=== PATIENT | female | born 1990 | race Hispanic/Latino ===

== ENCOUNTER 2020-10-30 15:21 | Inpatient (IN) | payer OTHER, SELFPAY ==
[~2020-10-30 15:21] MED LIST: Iopamidol-370 76% 500 ML 1 ML ONE
[2020-10-30 16:40] LABS: Hemoglobin 9.4 g/dL (12.0-16.0); Mean Corpuscular HGB CONC 29.5 g/dL (32.0-36.0); Mean Platelet Volume 5.6 fL (7.4-10.4); Platelet Count 557 thou/uL (130-400); RBC Distribution Width 20.4 % (11.5-14.5); Red Blood Cell (RBC) Count 5.25 mill/uL (4.20-5.40); White Blood Cell (WBC) Count 23.8 thou/uL (4.8-10.8)
[2020-10-30 16:49] LABS: BHCG - Serum Negative (NEGATIVE); Pregs Control Background? CLEAR/WHITE (CLR/WHITE); Pregs Control Bar Appear? YES (CONTROL BAR)
[2020-10-30 17:00] LABS: Anisocytosis SLIGHT = 6-15 cells (100X) (0-5/hpf); Band 3 % (5-11); Hypochromia SLIGHT = 6-15 cells (100X) (0-5/hpf); Lymphocytes 3 % (21-51); MDiff Complete? YES; Microcytosis SLIGHT = 6-15 cells (100X) (0-5/hpf); Monocytes 5 % (0-10); Neutrophil 89 % (42-75); Platelet Morphology Comment Appears Increased; Polychromasia SLIGHT = 2-3 cells (100X) (0-2/hpf); Reflex for Review?? YES; Target Cells SLIGHT = 2-5 cells (100X) (0-1/hpf)
[2020-10-30 17:02] LABS: ALT (SGPT) 10 U/L (8-55); AST (SGOT) 10 U/L (5-34); Albumin 3.9 g/dL (3.5-5.0); Alkaline Phosphatase 92 U/L (40-110); Anion Gap 16 mmol/L (10-20); BUN (Urea Nitrogen) 8 mg/dL (7.0-18.7); Bilirubin, Total 0.4 mg/dL (0.2-1.2); Calc. Creatinine Clearance 0 mL/min (70-130); Calcium 9.3 mg/dL (7.8-10.44); Carbon Dioxide 22 mmol/L (22-29); Chloride 97 mmol/L (98-107); Globulin 4.7 g/dL (2.4-3.5); Glucose 297 mg/dL (70-105); Potassium 4.3 mmol/L (3.5-5.1); Protein, Total 8.6 g/dL (6.0-8.3); Sodium 131 mmol/L (136-145)
--- NOTE | 2020-10-30 19:00 | CT ---
CTA Angio Chest W WO Con 10/30/2020 6:35 PM Indication: History of left-sided chest pain Technique: Multiple CTA images were obtained of the thorax with IV contrast. 3-D rendering: MIP ned nstructed images were created and reviewed. Comparison: No relevant prior studies available. Findings: Pulmonary arteries: There is lack of opacification of the left lower lobar pulmonary artery and the segmental branches of the left lower lobe suspicious for multifocal left lower lobe lobar and segmental pulmonary emboli. There are some areas of partial opacification involving the apical marinator ior segment of the left upper lobe suspicious for partially occlusive PE within the left upper lobe. No additional focal PE is grossly evident within the central pulmonary arteries of the right francoise ng. The degree of contrast opacification limits evaluation of the segmental branches of the right lung. Heart and Aorta: There is no evidence to suggest right heart strain. The great vessels of the chest appear within normal limits Mediastinum:Normal appearing. No enlarged lymph nodes. Lungs:There are areas of patchy airspace consolidation in the left lower lobe some which could be rel ated pulmonary infarct or pneumonia. There are calcified granuloma in the left lower lobe, right lower lobe and right upper lobe.. Pleural space: There is a moderate left-sided pleural effusion Upper Abdomen: There is prominent hepatomegaly with fatty infiltration with an area of focal fatty s paring in the left hepatic lobe. Osseous Structures: No acute fracture or subluxation demonstrated. There is scattered degenerative a nd osteoarthritic change present. Soft tissues:No abnormality. Other findings:None. Impression: 1. Lack of opacification of the left lower lobar pulmonary artery suspicious for occlusive thrombus. There are partially occlusive filling defects suspected within the segmental branches of the left lower lobe suspicious for multifocal segmental pulmonary emboli of the left lower lobe. There is airs pace disease of the left lower lobe which can be related to pneumonia or pulmonary infarct. There is suspected reactive moderate left-sided pleural effusion. Findings called to Dr. Huff at 6:45 PM on October 30, 2020. 2. Hepatomegaly with prominent fatty infiltration. 3. Findings of prior granulomatous disease
[2020-10-30] MEDS ORDERED: Sodium Chloride 0.9% 100 ML ONE (19:12)
[2020-10-30] MEDS ORDERED: Azithromycin 500 MG VIAL ONE (19:12)
[2020-10-30] MEDS ORDERED: Enoxaparin Sodium 80 MG/0.8 ML SYRINGE ONE (19:12)
[2020-10-30] MEDS ORDERED: cefTRIAXone\\ROCEPHIN 2 GM VIAL ONE (19:12)
[2020-10-30] MEDS ORDERED: Promethazine HCl 12.5 MG in Sodium Chloride 0.9% 50 ML IVPB PRN (20:44)
[2020-10-30] MEDS ORDERED: Ondansetron PF 4 MG/2 ML Vial IVP PRN (20:44)
[2020-10-30] MEDS ORDERED: Guaifenesin DM 100-10/5 ML UDCUP PO PRN (20:44)
[2020-10-30] MEDS ORDERED: hydrALAZINE 20 MG/ML VIAL SLOW IVP PRN (20:44)
[2020-10-30] MEDS ORDERED: Labetalol HCl 100 MG/20 ML VIAL SLOW IVP PRN (20:44)
[2020-10-30] MEDS ORDERED: cloNIDine 0.1 MG TAB PO PRN (20:44)
[2020-10-30] MEDS ORDERED: Electrolyte Replacement Protocol 1 EACH FS SCH (20:45)
[2020-10-30] MEDS ORDERED: Dextrose 50% Abboject 50 ML SYRINGE SLOW IVP PRN (20:54)
[2020-10-30] MEDS ORDERED: Dextrose 5% in Water 1,000 ML IV PRN (20:54)
--- NOTE | 2020-10-30 20:59 | PDOC.HHP ---
Hospitalist HPI Shortness of breath, chest pain History of Present Illness: Patient is a 30 year old female with PMH diabetes who presents to ED from [facility] for chest pain. Pain is L sided, associated with shortness of breath, present for a few days. Worsened this AM, denies fevers/chills. [facility]. She had CXR at [facility], was found to have pleural effusion, EKG read from there nonacute. Patient sent here, here CTA revealed PE as well as likely infectious process. Blood sugar in 300s, she does not take anything for DM at home. WBC 23.8, hgb 9.4, plt 557, BP 170s systolic. Patient given lovenox, admitted for further workup and care. She uses CPAP, does not have insurance and worried about costs. Allergies/Adverse Reactions: Allergy/AdvReac Type Severity Reaction Status Date / Time shellfish derived Allergy Unverified 10/30/20 21:06 Comments: none Past History: PMH: DM PSH: cyst surgery Social history: denies alcohol/tobacco/drug use FH: no relevant Hospitalist HPI ROS Constitutional: denies: fever, chills, sweats, weakness, malaise, other Eyes: denies: pain, vision change, conjunctivae inflammation, eyelid inflammation, redness, other ENT: denies: ear pain, ear discharge, nose pain, nose discharge, nose c ongestion, mouth pain, mouth swelling, throat pain, throat swelling, other Respiratory: reports: cough, shortness of breath, pleuritic pain. denies: dry, hemoptysis, SOB with excertion, sputum, wheezing, other Cardiovascular: reports: chest pain. denies: palpitations, orthopnea, paroxysmal noc. dyspnea, edema, light headedness, other Gastrointestinal: denies: nausea, vomiting, abdominal pain, diarrhea, constipation, melena, hematochezia, other Genitourinary: denies: dysuria, frequency, incontinence, hematuria, retention, other Musculoskeletal: denies: neck pain, shoulder pain, arm pain, back pain, hand pain, leg pain, foot pain, other Skin: denies: rash, lesions, rick, bruising, other Neurological: denies: weakness, numbness, incoordination, change in speech, confusion, seizures, other All other systems reviewed; all pertinent +/- noted in HPI/Subj Hospitalist Exam Vitals: VITAL SIGNS Oct 30, 2020 19:25 AUDREY Alaniz, Heidi BP: 171/82 Pulse: 108 Resp: 20 Pain: 4 O2 sat: 98 on (Room Air) Time: 10/30/2020 19:25. General Appearance: NAD, awake alert Eye: PERRL, anicteric sclera ENT: normocephalic atraumatic, no oropharyngeal lesions, moist mucosa Neck: supple, symmetric, no JVD, no thyromegaly, no lymphadenopathy, no carotid bruit Heart: RRR, no murmur, no gallops, no rubs, normal peripheral pulses Respiratory: CTAB, no wheezes, no rales, no ronchi, normal chest expansion, no tachypnea, normal percussion Gastrointestinal: soft, non-tender, non-distended, normal bowel sounds, no pal pable masses, no hepatomegaly, no splenomegaly, no bruit Extremities: no cyanosis, no clubbing, no edema Skin: normal turgor, no lesions, no rashes Neurological: cranial nerve grossly intact, normal sensation to touch, no wea kness, no focal deficits, no new deficit Musculoskeletal: normal tone, normal strength, no muscle wasting Psychiatric: normal affect, normal behavior, A&O x 3 Hospitalist Results Result Diagrams: 10/30/20 16:28 10/30/20 16:28 Lab results: Laboratory Last Values WBC 23.8 thou/uL (4.8-10.8) H 10/30/20 16: RBC 5.25 mill/uL (4.20-5.40) 10/30/20 16: Hgb 9.4 g/dL (12.0-16.0) L 10/30/20 16: Hct 32.0 % (36.0-47.0) L 10/30/20 16: MCV 61.0 fL (78.0-98.0) L 10/30/20 16: MCH 18.0 pg (27.0-31.0) L 10/30/20 16: MCHC 29.5 g/dL (32.0-36.0) L 10/30/20 16: RDW 20.4 % (11.5-14.5) H 10/30/20 16:28 Plt Count 557 thou/uL (130-400) H 10/30/20 16:28 MPV 5.6 fL (7.4-10.4) L 10/30/20 16:28 Neutrophils % (Manual) 89 % (42-75) H 10/30/20 16:28 Band Neuts % (Manual) 3 % (5-11) L 10/30/20 16:28 Lymphocytes % (Manual) 3 % (21-51) L 10/30/20 16:28 Monocytes % (Manual) 5 % (0-10) 10/30/20 16:28 Lymphocytes # Not Reportable 10/30/20 16:28 Hypochromia SLIGHT = 6-15 cells (100X) (0-5/hpf) 10/30/20 16:28 Plt Morphology Comment Appears Increased H 10/30/20 16:28 Polychromasia SLIGHT = 2-3 cells (100X) (0-2/hpf) 10/30/20 16:28 Anisocytosis SLIGHT = 6-15 cells (100X) (0-5/hpf) 10/30/20 16:28 Microcytosis SLIGHT = 6-15 cells (100X) (0-5/hpf) 10/30/20 16:28 Target Cells SLIGHT = 2-5 cells (100X) (0-1/hpf) 10/30/20 16:28 Sodium 131 mmol/L (136-145) L 10/30/20 16:28 Potassium 4.3 mmol/L (3.5-5.1) 10/30/20 16:28 Chloride 97 mmol/L (98-107) L 10/30/20 16:28 Carbon Dioxide 22 mmol/L (22-29) 10/30/20 16:28 Anion Gap 16 mmol/L (10-20) 10/30/20 16:28 BUN 8 mg/dL (7.0-18.7) 10/30/20 16:28 Creatinine 0.69 mg/dL (0.6-1.1) 10/30/20 16:28 Estimated GFR (MDRD) Greater than 90 10/30/20 16:28 Glucose 297 mg/dL (70-105) H 10/30/20 16:28 Calcium 9.3 mg/dL (7.8-10.44) 10/30/20 16:28 Total Bilirubin 0.4 mg/dL (0.2-1.2) 10/30/20 16:28 AST 10 U/L (5-34) 10/30/20 16:28 ALT 10 U/L (8-55) 10/30/20 16:28 Alkaline Phosphatase 92 U/L (40-110) 10/30/20 16:28 Serum Total Protein 8.6 g/dL (6.0-8.3) H 10/30/20 16:28 Albumin 3.9 g/dL (3.5-5.0) 10/30/20 16:28 Globulin 4.7 g/dL (2.4-3.5) H 10/30/20 16:28 Albumin/Globulin Ratio 0.8 g/dL (1.2-2.2) L 10/30/20 16:28 Serum , Qual Negative (NEGATIVE) 10/30/20 16:28 Additional comment: imaging results, CT chest report, ed documents, labs reviewed. vitals reviewed. Hospitalist H&P A/P Plan: Patient is a 30 year old female with PMH diabetes who presents to ED from [facility] for chest pain # LLL occlusive PE - admit to telemetry - start lovenox, pharmacy consult to dose - monitor for bleeding # LLL airspace disease # L sided pleural effusion # community acquired pneumonia patient w/ CT findings of occlusive PE, airspace disease, L sided PE associated with L sided chest pain - start antibiotics, azithromycin/ceftriaxone - monitor clinically # DM - does not manage at home, uncontrolled - start moderate SSI - consider metformin or glipizide at dc - A1C # leukocytosis # sepsis tachycardia, WBC 23.8, suspect related to pneumonia, abx as above # anemia # thrombocythemia suspect reactive, trend CBC # fatty liver disease - outpatient weight loss recommended # hyponatremia - mild, treat DM and trend BMP DVT/GI ppx
[2020-10-30] MEDS ORDERED: Famotidine 20 MG TAB PO SCH (21:00)
[2020-10-30] MEDS ORDERED: Ondansetron PF 4 MG/2 ML Vial ONE (21:45)
[2020-10-30] MEDS ORDERED: Famotidine 20 MG TAB ONE (21:53)
[2020-10-31] MEDS ORDERED: HYDROcodone/Acetaminophen 5/325 mg Tablet ONE (00:59)
[2020-10-31] MEDS: HYDROcodone/Acetaminophen 5/325 mg Tablet PO PRN ×2 (01:01→17:54)
[2020-10-31 04:50] VITALS: BMI 52.3
[2020-10-31 05:40] LABS: Anion Gap 13 mmol/L (10-20); BUN (Urea Nitrogen) 7 mg/dL (7.0-18.7); Calc. Creatinine Clearance 321 mL/min (70-130); Calcium 9.2 mg/dL (7.8-10.44); Carbon Dioxide 25 mmol/L (22-29); Chloride 98 mmol/L (98-107); Glucose 247 mg/dL (70-105); Potassium 3.8 mmol/L (3.5-5.1); Sodium 132 mmol/L (136-145)
[2020-10-31 05:56] LABS: #Eosinphils 0.1 thou/uL (0.0-0.7); #Monocytes 1.6 thou/uL (0.11-0.59); #Neutrophils 13.8 thou/uL (1.40-6.50); %Basophils 0.2 % (0.0-1.0); %Eosinophils 0.4 % (0.0-10.0); %Lymphocytes 16.4 % (21.0-51.0); %Monocytes 8.6 % (0.0-10.0); %Neutrophils 74.4 % (42.0-75.0); Hemoglobin 8.9 g/dL (12.0-16.0); Mean Corpuscular Hemoglobin 17.9 pg (27.0-31.0); Mean Corpuscular Volume 61.8 fL (78.0-98.0); Platelet Count 476 thou/uL (130-400); Red Blood Cell (RBC) Count 4.94 mill/uL (4.20-5.40); White Blood Cell (WBC) Count 18.6 thou/uL (4.8-10.8)
[2020-10-31] MEDS ORDERED: Acetaminophen 325 MG TAB PO PRN (06:13)
[2020-10-31] MEDS ORDERED: Magnesium 2 GM/50 ML 2 GM in Premix Bag 1 BAG IVPB SCH (06:30)
[2020-10-31] MEDS ORDERED: Calcium Carbonate 500 MG ChewTAB PO PRN (07:41)
[2020-10-31] MEDS ORDERED: Loperamide HCl 2 MG CAP PO PRN (07:41)
[2020-10-31] MEDS ORDERED: Sodium Chloride 0.65% Nasal 44 ML BOT EA NARE PRN (07:41)
[2020-10-31] MEDS ORDERED: Benzonatate 100 MG CAP PO PRN (07:41)
[2020-10-31] MEDS ORDERED: Zolpidem Tartrate 5 MG TAB PO PRN (07:41)
[2020-10-31] MEDS ORDERED: GUAIFENESIN SF SOLN 200 MG/10 ML UDCUP PO PRN (07:41)
[2020-10-31] MEDS ORDERED: Loratadine 10 MG TAB PO PRN (07:41)
[2020-10-31] MEDS ORDERED: Ondansetron ODT 4 MG TAB SL PRN (07:41)
[2020-10-31] MEDS ORDERED: Bisacodyl 5 MG TAB PO PRN (07:41)
[2020-10-31] MEDS ORDERED: Cepastat Lozenges 1 LOZ PO PRN (07:41)
[2020-10-31] MEDS ORDERED: Senokot S 8.6-50 MG TAB PO PRN (07:41)
[2020-10-31 09:01] LABS: INR-International Normal Ratio 1.1; Prothrombin Time 14.7 sec (12.0-14.7)
[2020-10-31 09:03] LABS: D-Dimer Test 1.88 *mcg/mL (0.27-0.43)
[2020-10-31] MEDS: Ferrous Sulfate 325 MG TAB PO SCH ×2 (09:15→17:32)
[2020-10-31] MEDS: Enoxaparin Sodium 80 MG/0.8 ML SYRINGE SC SCH ×2 (09:16→20:13)
[2020-10-31] MEDS: Polyethylene Glycol 3350 17 GM Packet PO SCH (09:17)
--- NOTE | 2020-10-31 10:56 | ULT ---
EXAM: Bilateral lower extremity venous ultrasound HISTORY: Patient has pulmonary emboli COMPARISON: None TECHNIQUE: Multiplanar grayscale and color Doppler images were obtained in a bilateral lower extremit y venous ultrasound. Spectral analysis of the Doppler waveforms were performed. FINDINGS: The bilateral common femoral vein, profunda femoral veins, superficial femoral veins, and p opliteal veins are normal in appearance without visible thrombus. These vessels demonstrate normal compression, flow, and augmentation. The bilateral posterior tibial veins, profunda femoral veins and greater saphenous veins are patent w ithout evidence of DVT. IMPRESSION: No evidence of DVT in the left or right lower extremity.
--- NOTE | 2020-10-31 10:58 | PDOC.HOSPP ---
- Subjective Encounter Date: 10/31/20 Encounter Time: 07:00 Subjective: Patient seen and examined bedside today, no overnight event, no new complaint, patient is on room air, no chest pain, - Objective Vital Signs & Weight: Vital Signs (12 hours) Temp Pulse Resp BP Pulse Ox 10/31/20 09:07 99.4 F 115 H 20 141/67 H 95 10/31/20 03:45 98.8 F 110 H 16 140/65 96 10/31/20 00:52 98.8 F 113 H 18 152/87 H 97 Weight Weight 354 lb 6.4 oz Result Diagrams: 10/31/20 05:11 10/31/20 05:11 Radiology Reviewed by me: Yes EKG Reviewed by me: Yes Hospitalist ROS - Review of Systems Eyes: denies: pain, vision change, conjunctivae inflammation, eyelid inflammation, redness, other ENT: denies: ear pain, ear discharge, nose pain, nose discharge, nose congestion, mouth pain, mouth swelling, throat pain, throat swelling, other Respiratory: denies: cough, dry, shortness of breath, hemoptysis, SOB with excertion, pleuritic pain, sputum, wheezing, other Cardiovascular: denies: chest pain, palpitations, orthopnea, paroxysmal noc. dyspnea, edema, light headedness, other Gastrointestinal: denies: nausea, vomiting, abdominal pain, diarrhea, constipation, melena, hematochezia, other Genitourinary: denies: dysuria, frequency, incontinence, hematuria, retention, other Musculoskeletal: denies: neck pain, shoulder pain, arm pain, back pain, hand pain, leg pain, foot pain, other - Medication Medications: Active Medications Generic Name Dose Route Start Last Admin Trade Name Freq PRN Reason Stop Dose Admin Hydrocodone Bitart/Acetaminophen 1 tab 10/30/20 20:44 10/31/20 01:01 Hydrocodone/Acetaminophen 5/325 Mg Tablet PO 1 tab Q4H PRN Administration Moderate Pain (4-6) Enoxaparin Sodium 160 mg 10/31/20 09:00 10/31/20 09:16 Enoxaparin Sodium 80 Mg/0.8 Ml Syringe SC 160 mg 0900,2100 JENNI Administration Ferrous Sulfate 325 mg 10/31/20 08:00 10/31/20 09:15 Ferrous Sulfate 325 Mg Tab PO 325 mg BID-WM JENNI Administration Ondansetron HCl 4 mg 10/30/20 20:44 10/30/20 21:52 Ondansetron Pf 4 Mg/2 Ml Vial IVP 4 mg Q6H PRN Administration Nausea/Vomiting use 1st Pantoprazole Sodium 40 mg 10/31/20 09:00 10/31/20 09:15 Pantoprazole 40 Mg Tab PO 40 mg DAILY JENNI Administration Polyethylene Glycol 17 gm 10/31/20 09:00 10/31/20 09:17 Polyethylene Glycol 3350 17 Gm Packet PO 17 gm DAILY JENNI Administration Sodium Chloride 10 ml 10/31/20 09:00 10/31/20 09:21 Flush - Normal Saline 10 Ml Syringe IVF 10 ml Q12HR JENNI Administration Hospitalist Exam Vitals: Vital Signs (12 hours) Temp Pulse Resp BP Pulse Ox 10/31/20 09:07 99.4 F 115 H 20 141/67 H 95 10/31/20 03:45 98.8 F 110 H 16 140/65 96 10/31/20 00:52 98.8 F 113 H 18 152/87 H 97 Weight Weight 354 lb 6.4 oz General Appearance: NAD, awake alert Eye: PERRL, anicteric sclera ENT: normocephalic atraumatic, no oropharyngeal lesions Neck: supple, symmetric, no JVD, no thyromegaly Heart: RRR, no murmur, no gallops, no rubs Respiratory: CTAB, no wheezes, no rales, no ronchi Respiratory - other findings: Morbid obesity limiting examination Gastrointestinal: soft, non-tender, non-distended, normal bowel sounds Extremities: no cyanosis, no clubbing, no edema Skin: normal turgor, no lesions Neurological: no focal deficits Musculoskeletal: normal tone, normal strength Psychiatric: normal affect, normal behavior Hosp A/P (1) Pulmonary embolism Code(s): I26.99 - OTHER PULMONARY EMBOLISM WITHOUT ACUTE COR PULMONALE Status: Acute Qualifiers: Pulmonary embolism type: other Chronicity: acute Acute cor pulmonale presence: without acute cor pulmonale Qualified Code(s): I26.99 - Other pulmonary embolism without acute cor pulmonale (2) Pulmonary infarction Code(s): I26.99 - OTHER PULMONARY EMBOLISM WITHOUT ACUTE COR PULMONALE Status: Acute (3) Pneumonia Code(s): J18.9 - PNEUMONIA, UNSPECIFIED ORGANISM Status: Acute Qualifiers: Pneumonia type: due to unspecified organism Lung location: unspecified part of lung (4) Iron deficiency anemia Code(s): D50.9 - IRON DEFICIENCY ANEMIA, UNSPECIFIED Status: Chronic Qualifiers: Iron deficiency anemia type: chronic blood loss Qualified Code(s): D50.0 - Iron deficiency anemia secondary to blood loss (chronic) (5) Uncontrolled type 2 diabetes mellitus Code(s): E11.65 - TYPE 2 DIABETES MELLITUS WITH HYPERGLYCEMIA Status: Chronic Qualifiers: Glycemic state: with hyperglycemia Qualified Code(s): E11.65 - Type 2 diabetes mellitus with hyperglycemia (6) Morbid obesity with BMI of 50.0-59.9, adult Code(s): E66.01 - MORBID (SEVERE) OBESITY DUE TO EXCESS CALORIES; Z68.43 - BODY MASS INDEX [BMI] 50.0-59.9, ADULT Status: Acute - Plan old records reviewed/req, continue antibiotics Continue Lovenox 1 mg/kg, I have discussed with the patient about chronic anticoagulation with oral anticoagulation therapy after discharge, I have discussed with her different options including warfarin, Eliquis and Xarelto, I have answered all her questions, because of financial issues patient may benefit with warfarin therapy, patient will make final decision about oral anticoagulant therapy tomorrow, we will do ultrasound lower extremity to rule out DVT, will continue with iron supplement, I have started insulin NPH 10 units subcu twice daily, will hold on Metformin because of CT angio, patient will need an oral diabetic medication including Metformin and glipizide upon discharge, will also do ultrasound pelvis for her menorrhagia, will check ferritin and inflammatory markers, plan of care discussed with the patient in detail, will closely monitor in hospital, ambulate as tolerated,, continue empiric antibiotic therapy for suspected pneumonia,
[2020-10-31] MEDS: NPH, Human Insulin Isophane 300 UNIT/3 ML VIAL SC SCH ×2 (13:24→20:16)
--- NOTE | 2020-10-31 15:14 | ULT ---
Pelvic sonogram transabdominal imaging HISTORY: Pelvic pain. Menorrhagia. FINDINGS: Patient declined transvaginal imaging. Very limited exam. The uterus and right ovary are no t visualized. Urinary bladder isn't distended. At the expected location of the left adnexa, a lobular heterogeneous, septated cystic structure is 8.4 cm x 8.3 cm x 7.1 cm greatest diameters. Good color and spectral Doppler flow. No free fluid is apparent within the pelvis. IMPRESSION : Very limited exam due to patient body habitus and transabdominal only imaging. Probable large right a dnexal cystic mass 8.4 cm. Ovarian cyst? For further characterization, CT pelvis (IV contrast would be important) would likely be helpful. MRI may eventually be necessary.
[2020-10-31] MEDS: HumaLOG 300 UNITS/3 ML VIAL SC PRN (17:30)
[2020-10-31] MEDS: cefTRIAXone\\ROCEPHIN 1 GM in Sodium Chloride 0.9% 100 ML IVPB SCH (20:16)
[2020-10-31] MEDS: Azithromycin 500 MG in Sodium Chloride 0.9% 250 ML 250 ML IVPB SCH (21:22)
[2020-11-01] MEDS: HumaLOG 300 UNITS/3 ML VIAL SC PRN ×3 (06:04→17:52)
[2020-11-01 07:42] LABS: Hemoglobin 8.2 g/dL (12.0-16.0); Mean Corpuscular HGB CONC 27.8 g/dL (32.0-36.0); Mean Platelet Volume 5.7 fL (7.4-10.4); Platelet Count 557 thou/uL (130-400); RBC Distribution Width 19.8 % (11.5-14.5); Red Blood Cell (RBC) Count 4.82 mill/uL (4.20-5.40); White Blood Cell (WBC) Count 17.5 thou/uL (4.8-10.8)
[2020-11-01 07:43] LABS: Anion Gap 15 mmol/L (10-20); BUN (Urea Nitrogen) 8 mg/dL (7.0-18.7); Calc. Creatinine Clearance 307 mL/min (70-130); Calcium 8.9 mg/dL (7.8-10.44); Carbon Dioxide 25 mmol/L (22-29); Chloride 98 mmol/L (98-107); Glucose 250 mg/dL (70-105); Potassium 3.8 mmol/L (3.5-5.1); Sodium 134 mmol/L (136-145)
[2020-11-01] MEDS: Ferrous Sulfate 325 MG TAB PO SCH ×2 (08:04→17:12)
[2020-11-01] MEDS: Polyethylene Glycol 3350 17 GM Packet PO SCH (08:04)
[2020-11-01] MEDS: Enoxaparin Sodium 80 MG/0.8 ML SYRINGE SC SCH ×2 (08:05→20:54)
[2020-11-01] MEDS: NPH, Human Insulin Isophane 300 UNIT/3 ML VIAL SC SCH ×2 (08:05→20:56)
[2020-11-01] MEDS: HYDROcodone/Acetaminophen 5/325 mg Tablet PO PRN (08:23)
[2020-11-01 08:45] LABS: #Basophils 0.1 thou/uL (0.0-0.2); #Eosinphils 0.1 thou/uL (0.0-0.7); #Lymphocytes 2.4 thou/uL (1.20-3.40); #Monocytes 1.2 thou/uL (0.11-0.59); #Neutrophils 13.7 thou/uL (1.40-6.50); %Basophils 0.6 % (0.0-1.0); %Eosinophils 0.4 % (0.0-10.0); %Lymphocytes 13.8 % (21.0-51.0); %Monocytes 7.1 % (0.0-10.0); %Neutrophils 78.2 % (42.0-75.0); Band 6 % (5-11); Eosinophils 1 % (0-10); Hypochromia MODERATE=16-30 cells (100X) (0-5/hpf); Lymphocytes 13 % (21-51); MDiff Complete? YES; Metamyelocyte 1 % (0-0); Microcytosis MODERATE=15-30 cells (100X) (0-5/hpf); Monocytes 8 % (0-10); Neutrophil 70 % (42-75); Ovalocytes SLIGHT = 2-5 cells (100X) (0-1/hpf); Platelet Morphology Comment Appears Increased; Polychromasia SLIGHT = 2-3 cells (100X) (0-2/hpf); Reactive Lymphocytes 1 % (0-10)
[2020-11-01] MEDS: Sodium Chloride 0.9% 1,000 ML IV SCH (10:36)
--- NOTE | 2020-11-01 10:38 | CT ---
CT abdomen and pelvis: 11/01/2020 HISTORY: Pelvic mass on prior ultrasound, vaginal bleeding TECHNIQUE: Axial CT imaging at 5 mm intervals from lung bases through pubic symphysis with IV and ora l contrast. Coronal and sagittal reformatted imaging obtained. FINDINGS: There is dense partial consolidation of the visualized left lower lobe with an incompletely imaged moderate-sized left pleural effusion. Right lung base grossly unremarkable. No free intraperitoneal air. The liver appears enlarged, measuring 28.6 cm in craniocaudal dimension. No focal liver lesion. Gallbladder, pancreas, and adrenal glands appear grossly unremarkable. The spleen is enlarged measuri ng 14.3 cm in craniocaudal dimension. The kidneys appear unremarkable. The endometrial canal is expanded and filled with heterogeneous material. Endometrial canal probably measures in the 4-5 cm range in AP dimension. There is a heterogeneous mass abutting the ventral aspect of the uterus. This mass measures 8.5 x 8.4 x 6.7 cm and demonstrates internal components of v arying densities, including components of fluid density and is soft tissue density. No internal fat or calcification is seen involving this mass. It is inseparable from the ventral wall of the uterus. In addition, it appears inseparable from the inferior margin of the left ovary. The right ovary appears grossly unremarkable. The urinary bladder is grossly unremarkable. No evidence for bowel inflammatory change or obstruction. The vascular structures of the abdomen and pelvis appear patent. No abdominal or pelvic adenopathy. Review of the osseous structures demonstrates no worrisome lytic or blastic bone lesions. IMPRESSION: 1. Large complex pelvic mass abutting the ventral aspect of the uterus and abutting the left ovary. E xact location of origin is uncertain. This could represent a hemorrhagic/complex mass, including a neoplastic lesion emanating from the left ovary. Necrotic anterior uterine fibroid is a possibility. Nonspecific expanded endometrium containing complex material suspicious for blood or tumor. [employer] consultation advised. 2. Dense pleural-parenchymal opacity in the left base suggests infectious pneumonitis or aspiration. Follow-up imaging of the chest is advised to document resolution and thus exclude an underlying neoplastic process within the left base. CODE T
[2020-11-01] MEDS ORDERED: Iopamidol 370 76% 100 ML VIAL ONE (13:47)
[2020-11-01] MEDS: Acetaminophen 325 MG TAB PO PRN ×2 (15:24→21:41)
--- NOTE | 2020-11-01 17:40 | PDOC.HOSPP ---
- Subjective Encounter Date: 11/01/20 Subjective: Patient continues to have some discomfort in her left chest. She thinks her Tylenol was discontinued but I believe it was simply removed in favor of the [place]. She has been trying not to take any [place] because she does not want to get addicted. She does continue to have some bleeding although it is improved. - Objective Vital Signs & Weight: Vital Signs (12 hours) Temp Pulse Resp BP BP Pulse Ox 11/01/20 15:28 98.5 F 107 H 15 137/65 95 11/01/20 10:52 98.2 F 103 H 18 127/61 95 11/01/20 07:57 98.3 F 106 H 12 140/67 95 11/01/20 06:23 171/97 H Weight Weight 354 lb 6.4 oz I&O: 10/31/20 11/01/20 11/02/20 06:59 06:59 06:59 Intake Total 1840 Balance 1840 Result Diagrams: 11/01/20 07:07 11/01/20 07:07 Additional Labs: Accuchecks 11/01/20 11/01/20 11/01/20 17:28 10:53 06:00 POC Glucose 251 H 299 H 252 H 10/31/20 20:01 POC Glucose 311 H Hospitalist ROS - Medication Medications: Active Medications Generic Name Dose Route Start Last Admin Trade Name Freq PRN Reason Stop Dose Admin Acetaminophen 650 mg 11/01/20 11:59 11/01/20 15:24 Acetaminophen 325 Mg Tab PO 650 mg Q6H PRN Administration Headache/Fever or Pain Hydrocodone Bitart/Acetaminophen 1 tab 10/30/20 20:44 11/01/20 08:23 Hydrocodone/Acetaminophen 5/325 Mg Tablet PO 1 tab Q4H PRN Administration Moderate Pain (4-6) Enoxaparin Sodium 160 mg 10/31/20 09:00 11/01/20 08:05 Enoxaparin Sodium 80 Mg/0.8 Ml Syringe SC 160 mg 0900,2100 JENNI Administration Ferrous Sulfate 325 mg 10/31/20 08:00 11/01/20 17:12 Ferrous Sulfate 325 Mg Tab PO 325 mg BID-WM JENNI Administration Azithromycin 500 mg/ Sodium 250 mls @ 250 mls/hr 10/31/20 21:00 10/31/20 21:22 Chloride IVPB 250 mls HS JENNI Administration Ceftriaxone Sodium 1 gm/ 100 mls @ 200 mls/hr 10/31/20 20:00 10/31/20 20:16 Sodium Chloride IVPB 100 mls Q24HR@2000 JENNI Administration Sodium Chloride 1,000 mls @ 75 mls/hr 11/01/20 08:00 11/01/20 10:36 Normal Saline 0.9% IV 1,000 mls .[id number] JENNI Administration Insulin Human Lispro 0 units 10/30/20 20:54 11/01/20 11:11 Humalog 300 Units/3 Ml Vial SC 6 unit .MODERATE SLIDING SC PRN Administration Moderate Correctional Scale Insulin Human NPH 10 unit 10/31/20 09:00 11/01/20 08:05 Nph, Human Insulin Isophane 300 Unit/3 Ml Vial SC 10 units BID JENNI Administration Ondansetron HCl 4 mg 10/30/20 20:44 10/30/20 21:52 Ondansetron Pf 4 Mg/2 Ml Vial IVP 4 mg Q6H PRN Administration Nausea/Vomiting use 1st Pantoprazole Sodium 40 mg 10/31/20 09:00 11/01/20 08:04 Pantoprazole 40 Mg Tab PO 40 mg DAILY JENNI Administration Polyethylene Glycol 17 gm 10/31/20 09:00 11/01/20 08:04 Polyethylene Glycol 3350 17 Gm Packet PO 17 gm DAILY JENNI Administration Senna/Docusate Sodium 2 tab 10/31/20 07:41 10/31/20 20:21 Senokot S 8.6-50 Mg Tab PO 2 tab BID PRN Administration Constipation Sodium Chloride 10 ml 10/31/20 09:00 11/01/20 08:06 Flush - Normal Saline 10 Ml Syringe IVF 10 ml Q12HR JENNI Administration Hospitalist Exam Vitals: Vital Signs (12 hours) Temp Pulse Resp BP BP Pulse Ox 11/01/20 15:28 98.5 F 107 H 15 137/65 95 11/01/20 10:52 98.2 F 103 H 18 127/61 95 11/01/20 07:57 98.3 F 106 H 12 140/67 95 11/01/20 06:23 171/97 H Weight Weight 354 lb 6.4 oz General Appearance: NAD, awake alert General - other findings: Pale, morbidly obese, hirsute, balding pattern. Heart: RRR, no murmur, no gallops, no rubs, normal peripheral pulses Respiratory: no wheezes, no ronchi, rales (Left base) Gastrointestinal: soft, non-tender, non-distended, normal bowel sounds, no palpable masses, no hepatomegaly, no splenomegaly, no bruit Extremities: no cyanosis, no clubbing, no edema Skin: normal turgor Neurological: no focal deficits Musculoskeletal: normal tone Psychiatric: normal affect, normal behavior, A&O x 3 Hosp A/P (1) Pulmonary embolism Code(s): I26.99 - OTHER PULMONARY EMBOLISM WITHOUT ACUTE COR PULMONALE Status: Acute Qualifiers: Pulmonary embolism type: other Chronicity: acute Acute cor pulmonale presence: without acute cor pulmonale Qualified Code(s): I26.99 - Other pulmonary embolism without acute cor pulmonale (2) Pulmonary infarction Code(s): I26.99 - OTHER PULMONARY EMBOLISM WITHOUT ACUTE COR PULMONALE Status: Acute (3) Menorrhagia Code(s): N92.0 - EXCESSIVE AND FREQUENT MENSTRUATION WITH REGULAR CYCLE Status: Acute (4) Pelvic mass Code(s): R19.00 - INTRA-ABD AND PELVIC SWELLING, MASS AND LUMP, UNSP SITE Status: Acute (5) Morbid obesity with BMI of 50.0-59.9, adult Code(s): E66.01 - MORBID (SEVERE) OBESITY DUE TO EXCESS CALORIES; Z68.43 - BODY MASS INDEX [BMI] 50.0-59.9, ADULT Status: Acute (6) Iron deficiency anemia Code(s): D50.9 - IRON DEFICIENCY ANEMIA, UNSPECIFIED Status: Chronic Qualifiers: Iron deficiency anemia type: chronic blood loss Qualified Code(s): D50.0 - Iron deficiency anemia secondary to blood loss (chronic) (7) Uncontrolled type 2 diabetes mellitus Code(s): E11.65 - TYPE 2 DIABETES MELLITUS WITH HYPERGLYCEMIA Status: Chronic Qualifiers: Glycemic state: with hyperglycemia Qualified Code(s): E11.65 - Type 2 diabetes mellitus with hyperglycemia - Plan Pulmonary embolism: Patient has left-sided pulmonary embolus with evidence of pulmonary infarction and some effusion. She has some pleuritic chest pain associated with this. She remains on anticoagulation although we are trying to sort out the appropriate long-term treatment. She does not appear to have significant respiratory compromise or hypoxia. Pulmonary infarction: As above. She has a substantially elevated white blood cell count therefore being covered for community-acquired pneumonia as well. Pelvic mass: Patient is a large cystic pelvic mass of unclear etiology. Discussed with gynecology. Ca1 25 was indeterminate at 53. Patient would not have surgery here due to the concern for cancer. Patient would be referred to [place] or [facility]. Recommendation is for treatment of the PE initially. Recommendation for outpatient follow-up. Menorrhagia: Patient reports longstanding menorrhagia. Unclear how this may be related to the pelvic mass. Has led to significant iron deficiency anemia. Gynecology recommendation for Provera 10 mg twice daily with heavy bleeding and daily for casino cage cashier bleeding. Indicated this should not be prothrombotic. Does complicate the need for anticoagulation. So far does not seem to have been exacerbated with anticoagulation. Iron deficiency anemia: Secondary to menorrhagia. Initiate oral iron supplementation. Uncontrolled diabetes mellitus: New onset. Currently on insulin therapy. We will likely be able to initiate oral medications on 11-02-2020. Not started sooner due to the requirement for IV contrast. Constipation: Sounds like a longstanding problem for the patient over the last few months. Could potentially be related to the pelvic mass. Continue with Primo
[2020-11-01] MEDS: cefTRIAXone\\ROCEPHIN 1 GM in Sodium Chloride 0.9% 100 ML IVPB SCH (20:54)
[2020-11-01] MEDS: medroxyPROGESTERone Acetate 5 MG TAB PO SCH (20:55)
[2020-11-01] MEDS: Azithromycin 500 MG in Sodium Chloride 0.9% 250 ML 250 ML IVPB SCH (21:42)
[2020-11-02] MEDS: Sodium Chloride 0.9% 1,000 ML IV SCH (00:38)
[2020-11-02] MEDS: HumaLOG 300 UNITS/3 ML VIAL SC PRN ×3 (06:02→16:56)
[2020-11-02] MEDS: Acetaminophen 325 MG TAB PO PRN ×2 (06:04→13:26)
[2020-11-02 06:13] LABS: Anion Gap 15 mmol/L (10-20); BUN (Urea Nitrogen) 6 mg/dL (7.0-18.7); Calc. Creatinine Clearance 337 mL/min (70-130); Calcium 8.7 mg/dL (7.8-10.44); Carbon Dioxide 23 mmol/L (22-29); Chloride 99 mmol/L (98-107); Glucose 250 mg/dL (70-105); Magnesium 2.1 mg/dL (1.6-2.6); Potassium 3.8 mmol/L (3.5-5.1); Sodium 133 mmol/L (136-145)
[2020-11-02 06:32] LABS: #Eosinphils 0.1 thou/uL (0.0-0.7); #Lymphocytes 2.4 thou/uL (1.20-3.40); #Monocytes 1.3 thou/uL (0.11-0.59); #Neutrophils 13.7 thou/uL (1.40-6.50); %Basophils 0.2 % (0.0-1.0); %Eosinophils 0.8 % (0.0-10.0); %Lymphocytes 13.6 % (21.0-51.0); %Monocytes 7.5 % (0.0-10.0); %Neutrophils 77.9 % (42.0-75.0); Anisocytosis SLIGHT = 6-15 cells (100X) (0-5/hpf); Hemoglobin 8.2 g/dL (12.0-16.0); Hypochromia SLIGHT = 6-15 cells (100X) (0-5/hpf); MDiff Complete? YES; Mean Corpuscular Hemoglobin 18.2 pg (27.0-31.0); Mean Corpuscular Volume 60.5 fL (78.0-98.0); Mean Platelet Volume 5.6 fL (7.4-10.4); Microcytosis MODERATE=15-30 cells (100X) (0-5/hpf); Platelet Count 545 thou/uL (130-400); Platelet Morphology Comment Appears Increased; RBC Distribution Width 19.4 % (11.5-14.5); Red Blood Cell (RBC) Count 4.53 mill/uL (4.20-5.40); Small Platelets SLIGHT; White Blood Cell (WBC) Count 17.5 thou/uL (4.8-10.8)
[2020-11-02] MEDS: Polyethylene Glycol 3350 17 GM Packet PO SCH (08:54)
[2020-11-02] MEDS: Ferrous Sulfate 325 MG TAB PO SCH ×2 (08:55→17:00)
[2020-11-02] MEDS: NPH, Human Insulin Isophane 300 UNIT/3 ML VIAL SC SCH (08:55)
[2020-11-02] MEDS: medroxyPROGESTERone Acetate 5 MG TAB PO SCH (08:56)
[2020-11-02] MEDS: Enoxaparin Sodium 80 MG/0.8 ML SYRINGE SC SCH (08:56)
[2020-11-02] MEDS: HYDROcodone/Acetaminophen 5/325 mg Tablet PO PRN ×2 (09:02→16:58)
[2020-11-02 16:14] VITALS: BP 140/70; TEMP 98.3
[2020-11-02] MEDS ORDERED: Iron Sucrose Complex 100 MG in Sodium Chloride 0.9% 100 ML IVPB SCH (16:15)
[2020-11-02] MEDS ORDERED: metFORMIN 500 MG TAB PO SCH (17:00)
[2020-11-02] MEDS ORDERED: Iron, Sodium Ferric Gluconate 125 MG in Sodium Chloride 0.9% 100 ML IVPB SCH (18:00)
[2020-11-02] MEDS ORDERED: Azithromycin 500 MG in Sodium Chloride 0.9% 250 ML 250 ML IVPB SCH (21:00)
--- NOTE | 2020-11-05 04:51 | PQF ---
CLINICAL DOCUMENTATION CLARIFICATION FORM: Dear DrMirna: Kaleb Cardona Date / Time:11/05/2020450 Please exercise your independent, professional judgment in responding to the clarification form. Clinical indicators are provided on the bottom of this form for your review Please check appropriate box(es): [ ] Sepsis due to Pneumonia [ ] Localized infection without sepsis [ x ] Other diagnosis PE with infarct [ ] Unable to determine Physician Signature: Date/Time: For continuity of documentation, please document condition throughout progress notes and discharge summary. Thank You. To be completed by CDI/Coding staff for physician review: Present Clinical Indicators - Signs / Symptoms / Labs Results and Location in Medical Record [x] WBC 23.8, Plt count 557, Neutrophils 89, Band 3 Laboratory 10/30 [x] BP 172/90, Pulse 122, Resp 19, Temp 99.7 Vital signs 10/30 [x] Chest CTA: There is airspace disease of the LLL which can be related to Pneumonia or pulmonary infarct Imaging 10/30 [x] Presented with Chest pain H&P p1 10/30 Dr Cosme [x] Community acquired pneumonia H&P p4 10/30 Dr Cosme [x] Leukocytosis H&P p4 10/30 Dr Cosme [x] Sepsis H&P p4 10/30 Dr Cosme [x] Thrombocytopenia H&P p4 10/30 Dr Cosme Present Risk Factors Results and Location in Medical Record [x] DM H&P p1 10/30 Dr Cosme [x] Community acquired pneumonia H&P p4 10/30 Dr Cosme Present Treatments Results and Location in Medical Record [x] IVF NS 1L NOV 06 [x] IV Rocephin 2 gm NOV 06 [x] IV Azithromax 500 mg NOV 06 CDS/Textile Artist Signature: Ghazal Cowanjac Phone #: ext [phone] Date/Time: 11/05/2020450 This is a permanent part of the Medical Record [facility]
--- NOTE | 2020-11-06 14:49 | PDOC.DS.DS ---
Provider Date of Admission: 10/30/20 19:49 Date of Discharge: 11/02/20 Admitting Provider: Terrence Cosme MD Primary Care Physician: Star Morrow MD Course Hospital Course: This patient is a 30-year-old female with a history of diabetes mellitus. She presented to an outside emergency department describing left-sided chest pain and shortness of breath. Chest x-ray there showed possible left-sided pleural effusion. She was subsequently transferred to our facility where a CTA revealed the PE as well as potential infectious process. She had blood sugars over 300. Pulmonary embolism: Patient has left-sided pulmonary embolus with evidence of pulmonary infarction and some effusion. She has some pleuritic chest pain associated with this. anticoagulation was complicated by the fact that the patient had severe menorrhagia and associated iron deficiency anemia. Case was discussed with Dr. Alfaro. Recommendation was to fully anticoagulate the patient as we normally would. The menorrhagia could be managed with Provera. Long discussion with the patient regarding potential options including risk, benefits, and costs and follow-up. Ultimately the decision was made to pursue Eliquis and we confirmed that this was covered by her insurance. Pulmonary infarction: As above. She has a substantially elevated white blood cell count therefore being covered for community-acquired pneumonia as well. Pelvic mass: Patient is a large cystic pelvic mass of unclear etiology. Discussed with gynecology. Ca 125 was indeterminate at 53. Patient would not have surgery here due to the concern for cancer. Patient would be referred to [place] or the [facility]. Recommendation is for treatment of the PE initially. Recommendation for outpatient follow-up. this was reviewed extensively with the patient. Menorrhagia: Patient reports longstanding menorrhagia. Unclear how this may be related to the pelvic mass. Has led to significant iron deficiency anemia. Gynecology recommendation for Provera 10 mg twice daily with heavy bleeding and daily for spinneret person bleeding. Indicated this should not be prothrombotic. Does complicate the need for anticoagulation. while receiving anticoagulation in the hospital this did not appear to be significantly exacerbated. She was started on Provera 10 mg twice a day in the hospital. She indicated that the bleeding had slowed substantially prior to the time of discharge. Iron deficiency anemia: Secondary to menorrhagia. Initiate oral iron supplementation. she was also given Venofer 100 mg IV 1. Uncontrolled diabetes mellitus: New onset. Currently on insulin therapy. Metformin was not initiated due to the need for contrast imaging. This was initiated at discharge. Constipation: Sounds like a longstanding problem for the patient over the last few months. Could potentially be related to the pelvic mass. Continue with [place]. reviewed the plan with the patient repeatedly at her request. Answered all of her questions. Patient was encouraged to return to the hospital should she have any major bleeding complications. Resuscitation Status: 10/30/20 20:52 Resuscitation Status Routine Resuscitation Status: FULL: Full Resuscitation Lab Results: 11/02/20 05:26 11/02/20 05:26 Vitals: Weight Weight 354 lb 6.4 oz Physical Exam: The patient was seen and examined on the day of discharge. General Appearance: NAD, awake alert General - other findings: obese. Hirsute. Respiratory: no wheezes, no ronchi, rales (left base) Cardiovascular: RRR, no murmur, no gallops, no rubs Gastrointestinal: soft, non-tender, non-distended, normal bowel sounds Extremities: no cyanosis, no clubbing, no edema Skin: normal turgor Musculoskeletal: normal tone, normal strength, no muscle wasting PSYCH: normal affect, normal behavior, A&O x 3 Problem Time Spent in discharge related activities (mins): 40 (1) Pulmonary embolism Code(s): I26.99 - OTHER PULMONARY EMBOLISM WITHOUT ACUTE COR PULMONALE Status: Acute Qualifiers: (2) Pulmonary infarction Code(s): I26.99 - OTHER PULMONARY EMBOLISM WITHOUT ACUTE COR PULMONALE Status: Acute (3) Menorrhagia Code(s): N92.0 - EXCESSIVE AND FREQUENT MENSTRUATION WITH REGULAR CYCLE Status: Acute (4) Pelvic mass Code(s): R19.00 - INTRA-ABD AND PELVIC SWELLING, MASS AND LUMP, UNSP SITE Stat us: Acute (5) Morbid obesity with BMI of 50.0-59.9, adult Code(s): E66.01 - MORBID (SEVERE) OBESITY DUE TO EXCESS CALORIES; Z68.43 - BODY MASS INDEX [BMI] 50.0-59.9, ADULT Status: Chronic (6) Iron deficiency anemia Code(s): D50.9 - IRON DEFICIENCY ANEMIA, UNSPECIFIED Status: Chronic Qualifiers: (7) Uncontrolled type 2 diabetes mellitus Code(s): E11.65 - TYPE 2 DIABETES MELLITUS WITH HYPERGLYCEMIA Status: Chronic Qualifiers: Plan Prescriptions: Amoxicillin/Potassium Clav [Augmentin 875-125 Tablet] 1 each PO BID #14 tablet Apixaban [Eliquis] 5 mg PO BID #56 tablet Ferrous Sulfate 325 mg PO BID #60 tablet metFORMIN [Glucophage] 500 mg PO BID-WM #60 tab medroxyPROGESTERone Acetate [Provera] 10 mg PO DAILY #40 tab traMADol HCl [Tramadol HCl] 50 mg PO QID PRN #30 tablet PRN Reason: Pain Home Medications: Medication Instructions Recorded Confirmed Type Apixaban [Eliquis] 5 mg PO BID #56 tablet 11/01/20 11/03/20 Rx Amoxicillin/Potassium Clav 1 each PO BID #14 tablet 11/02/20 11/03/20 Rx [Augmentin 875-125 Tablet] Ferrous Sulfate 325 mg PO BID #60 tablet 11/02/20 11/03/20 Rx medroxyPROGESTERone Acetate 10 mg PO DAILY #40 tab 11/02/20 11/03/20 Rx [Provera] metFORMIN [Glucophage] 500 mg PO BID-WM #60 tab 11/02/20 11/03/20 Rx traMADol HCl [Tramadol HCl] 50 mg PO QID PRN #30 tablet 11/02/20 11/03/20 Rx Allergies: shellfish derived Allergy (Verified 10/31/20 05:55) Discharge Instructions:: Follow up with the [facility] [place] . Take the Methylprogesterone (Provera) as follows: Heavy bleeding, take 10 mg twice daily. Moderate bleeding, take 10 one daily. No bleeding, don't take any. Take the Eliquis twice daily as a blood thinner to treat the blood clot in the lung. If you have severe bleeding, stop the Eliquis and call Dr. Morrow or come to the Emergency Department for evaluation. Monitor blood sugars before meals. Write them down and follow up with Dr. Morrow in one week. Take the numbers with you. Activity:: Activity as Tolerated Nourishment:: Diabetic Diet Referrals: Star Morrow MD [Primary Care Provider] - Disposition: HOME Quality CORE MEASURES:: N/A
== END 2020-11-02 19:18 | disposition home or self-care (01) | DRG 175 ==
LOC: ERS 15:21 → ERHOLD 19:49 → 2SW 10-31 04:00
PROVIDERS: ADMIT Internal Medicine; ATTEND Internal Medicine
DX: I26.99 Other pulmonary embolism without acute cor pulmonale (principal); J18.9 Pneumonia, unspecified organism; Z68.43 Body mass index [BMI] 50.0-59.9, adult; E87.1 Hypo-osmolality and hyponatremia; Z91.013 Allergy to seafood; Z20.822 Contact with and (suspected) exposure to COVID-19; N92.0 Excessive and frequent menstruation with regular cycle; R19.00 Intra-abdominal and pelvic swelling, mass and lump, unspecified site; E66.01 Morbid (severe) obesity due to excess calories; D50.0 Iron deficiency anemia secondary to blood loss (chronic); E11.65 Type 2 diabetes mellitus with hyperglycemia; K59.00 Constipation, unspecified; K76.0 Fatty (change of) liver, not elsewhere classified; D69.6 Thrombocytopenia, unspecified
CPT/HCPCS: 36415; 36416; 71275; 74177; 76856; 80048; 80053; 82728; 83036; 83735; 84703; 85025; 85060; 85379; 85610; 86140; 86304; 87635; 93970; 93976; 96365; 96366; 96367; 96372; J0456; J0696; J1650; J1815; J2405; J2916; J3475; J3490; J7050; Q9967; U0003; U0005

== ENCOUNTER 2020-11-03 09:26 | Inpatient (IN) | payer OTHER ==
--- NOTE | 2020-11-03 10:38 | ULT ---
EXAM: Transabdominal pelvic ultrasound PROVIDED CLINICAL HISTORY: Vaginal bleeding COMPARISON: 10/31/2020 pelvic ultrasound 11/01/2020 CT abdomen and pelvis FINDINGS: The uterus and right ovary are not discretely identified. Complex left adnexal cystic mass is redemon strated. No significant free pelvic fluid is evident. IMPRESSION: Large complex left adnexal cystic mass is redemonstrated, cystic ovarian neoplasm not excluded. Uteru s and right ovary are not identified.
[2020-11-03 10:45] LABS: BHCG - Serum Negative (NEGATIVE); Pregs Control Background? CLEAR/WHITE (CLR/WHITE); Pregs Control Bar Appear? YES (CONTROL BAR)
[2020-11-03 11:00] LABS: ALT (SGPT) 8 U/L (8-55); AST (SGOT) 11 U/L (5-34); Albumin 3.2 g/dL (3.5-5.0); Alkaline Phosphatase 113 U/L (40-110); Anion Gap 16 mmol/L (10-20); BUN (Urea Nitrogen) 5 mg/dL (7.0-18.7); Bilirubin, Total 0.3 mg/dL (0.2-1.2); Calc. Creatinine Clearance 0 mL/min (70-130); Calcium 8.8 mg/dL (7.8-10.44); Carbon Dioxide 23 mmol/L (22-29); Chloride 97 mmol/L (98-107); Globulin 4.4 g/dL (2.4-3.5); Glucose 273 mg/dL (70-105); Protein, Total 7.6 g/dL (6.0-8.3); Sodium 132 mmol/L (136-145)
[2020-11-03 11:11] LABS: Anisocytosis MODERATE=16-30 cells (100X) (0-5/hpf); Band 12 % (5-11); Hemoglobin 7.7 g/dL (12.0-16.0); Lymphocytes 9 % (21-51); MDiff Complete? YES; Mean Corpuscular HGB CONC 28.8 g/dL (32.0-36.0); Mean Corpuscular Hemoglobin 17.4 pg (27.0-31.0); Mean Corpuscular Volume 60.6 fL (78.0-98.0); Mean Platelet Volume 6.4 fL (7.4-10.4); Monocytes 2 % (0-10); Neutrophil 77 % (42-75); Platelet Count 519 thou/uL (130-400); Platelet Morphology Comment Appears Increased; RBC Distribution Width 19.9 % (11.5-14.5); Red Blood Cell (RBC) Count 4.43 mill/uL (4.20-5.40); White Blood Cell (WBC) Count 21.2 thou/uL (4.8-10.8)
[2020-11-03 11:23] LABS: INR-International Normal Ratio 1.4; PTT 38.8 sec (22.9-36.1); Prothrombin Time 17.5 sec (12.0-14.7)
--- NOTE | 2020-11-03 12:07 | PDOC.BPN ---
- Brief Progress Note OBGYN Level Vial Grinder in [place] PHONE CONSULT with ED Resident: Patient not seen as I am in [place] (in-house call) and the patient is in [place] I just received a phone call with [facility] ED on Ms rodriguez. History reviewed. This is a 30 yo virginal patient with HMB, s/p Fe use for chronic anemia, recently started on anticoagulation for subsegmental PE. She now has a DX of possible pneumonia. I was called (in [place]) for recommendations to stop her VB. Her Hgb is 7.7. Sono (transbadominal) also has found a left Ov Cyst which will need follow up later. Due to her pneumonia HX, she will be admitted to medicine for the pulmonary process. the VB (HMB) I am anticipating will reduce with the provera. Ideally, an EMB would be done but I am inhouse at [place]. The EMB may be less important in this case though as we have an etiology for the HMB (anticoagulation) DX: Subsegmental PE HX Posible pneumonia HMB on anticoagulation Obesity Recommendation: I have recommended 1 unit PRBCs. As she in on anticogulation (recent new start), I recommend against OCPs or TXA at this time. I recommend high dose provera (MPA) at 10mg po TID x 7 days at least to mitigate the bleed.
[2020-11-03] MEDS ORDERED: Cefepime 2 GM VIAL ONE (12:16)
--- NOTE | 2020-11-03 12:18 | RAD ---
EXAM: XR Chest 1 View Portable PROVIDED CLINICAL HISTORY: Fever COMPARISON: CT angiogram chest 10/30/2020 FINDINGS: The cardiac silhouette is largely obscured left of midline. There is persistent left basilar pleural- parenchymal opacity. The right lung appears clear. There is no evidence for pneumothorax. IMPRESSION: Similar left basilar pleural and parenchymal opacity.
[2020-11-03 12:20] LABS: Bacteria/HPF None Seen HPF (None Seen); Bilirubin Negative (Negative); Blood, Urine 1+ (Negative); Clarity Clear (Clear); Glucose, Urine (Dipstick) 70 mg/dL (Negative); Ketone, Urine Negative (Negative); Leukocyte Negative Leu/uL (Negative); Nitrite Negative (Negative); Protein, Urine (Dipstick) 100 mg/dL (Neg-Trace); RBC/HPF 0-3 HPF (0-3); Specific Gravity, Urine 1.012 (1.002-1.036); Squamous Epithelial 0-3 HPF (0-3); Urobilinogen Normal mg/dL (Less than 2); WBC/HPF 0-3 HPF (0-3); pH, Urine 6.5 (5.0-9.0)
[2020-11-03] MEDS ORDERED: VANCOMYCIN 2 GRAM/400 ML BAG 2 GM in Premix Bag 1 BAG IVPB SCH ×2 (14:15→23:59)
[2020-11-03] MEDS ORDERED: Senokot S 8.6-50 MG TAB PO PRN (15:19)
[2020-11-03] MEDS ORDERED: Dextrose 50% Abboject 50 ML SYRINGE SLOW IVP PRN (15:26)
[2020-11-03] MEDS ORDERED: Dextrose 5% in Water 1,000 ML IV PRN (15:26)
[2020-11-03] MEDS ORDERED: Heparin 10,000 UNITS/ 10 ML VIAL SLOW IVP SCH (15:30)
[2020-11-03] MEDS ORDERED: Heparin 25,000 units/D5W 500 ML IVPB SCH (15:30)
[2020-11-03] MEDS ORDERED: traMADol HCl 50 MG TAB PO PRN (16:25)
--- NOTE | 2020-11-03 18:31 | HP ---
HISTORY OF PRESENT ILLNESS: She was recently admitted and discharged yesterday 11/03 with pneumonia and pulmonary emboli. She was discharged home on Eliquis. She returned to the emergency room today after she experience heavy vaginal bleeding this morning and she was found to have decrease in her hemoglobin from 8.2 to 7.7. She reports that she still feels short of breath. This is unchanged from when she was discharged yesterday. She does report some generalized fatigue. She does have a history of heavy menstrual periods and is baseline anemic prior to the admission this week. Dr. Narayanan, the Hospitalist of the [place], was consulted today and he recommended a unit of packed red blood cells and then Provera 10 mg t.i.d. for seven days to control the heavy menstrual period. Her evaluation in the emergency room, chest x-ray is similar, left basilar pleural and parenchymal opacity. Her PTT is 38.8, INR is 1.4. White blood cell count is increased to 21.2 with 18 on discharge, hemoglobin 7.7 down from 8.2, hematocrit is 26.8, platelet count is 519, bands are 12. Sodium 132, chloride 97, BUN is 5, creatinine is 0.65, glucose is 273. Her alkaline phosphatase is 113. They repeated pelvic ultrasound and she has a large complex left adrenal cystic mass. Once again shown uterus and right ovary were not identified on that scan. She was given vanc, 1 L of normal saline, Levaquin, and cefepime in the emergency room for her pneumonia. She received ceftriaxone and azithromycin on this last admission and was sent home on Augmentin. She will be readmitted for further management of her PE, vaginal bleeding, anemia, and elevated blood sugar. REVIEW OF SYSTEMS: The patient reports shortness of breath, reports chest pain primarily to the left side. Reports abdominal pain. Reports heavy vaginal bleeding. Reports lumbar pain from lying in the ER stretcher. All systems are reviewed and are negative unless mentioned above or in the HPI. ALLERGIES: SHELLFISH. MEDICATIONS: She was sent home on; 1. Augmentin 875-125 one tablet p.o. b.i.d. 2. Eliquis 5 mg p.o. b.i.d. She was to take 10 mg p.o. b.i.d. for six days and then one tablet p.o. b.i.d. after that. 3. Ferrous sulfate 325 mg p.o. b.i.d. 4. Metformin 500 mg p.o. b.i.d. 5. Provera 10 mg p.o. twice daily for up to one week for heavy bleeding and then to discontinue when the bleeding stops. 6. Tramadol 50 mg p.o. q.i.d. p.r.n. PHYSICAL EXAMINATION: VITAL SIGNS: Blood pressure 148/67, pulse is 118, respiratory rate is 22, temp is 98.3, pO2 sats are 95% on room air. CONSTITUTIONAL: The patient appears a little discomfort. She reports that her back hurts from lying on her back. She usually lays on her side, but has been afraid to move because of the several IVs that she has for blood and fluid transfusions. However, she is in no apparent distress. She is oriented to person, place, and time. HEENT: Head is atraumatic and normocephalic. Eyes; pupils are equally round and reactive to light. ENT; mouth exam is normal. Mucous membranes are moist. NECK: Normal range of motion. Trachea is midline. RESPIRATORY: Chest expansion is equal. Breath sounds are difficult to auscultate due to body habitus. CARDIOVASCULAR: She is tachycardic. Regular rhythm. Heart sounds are normal. ABDOMEN: She is diffusely tender. No peritoneal signs. Bowel sounds are heard. BACK: She is mildly tender paraspinal bilaterally. EXTREMITIES: Upper extremity, normal range of motion. Radial pulses are normal. Lower extremity, normal range of motion. Pedal pulses are normal. NEURO: The patient is oriented to person, place, and time. Speech is normal. SKIN: Warm, dry, and pale. PSYCH: She has a normal affect. She is oriented to person, place, and time. PAST MEDICAL HISTORY: Diabetes, not controlled. Recently diagnosed with a pulmonary emboli. Has a psych history of anxiety. She has had surgery on a prior ovarian cyst. She denies any alcohol. No drug use. No smoking history. Lives at home with her family. PLAN AND ASSESSMENT: 1. Heavy vaginal bleeding with the context of being started on Eliquis for a PE. We are going to switch her from Eliquis to heparin drip for now, and she has been compliant with her Eliquis. Dr. Narayanan was consulted by the emergency room ER doc and he recommended increasing the Provera 10 mg t.i.d. until the bleeding stops or about a week. 2. History of a pulmonary emboli. Please see #1. 3. History of pneumonia. She was sent home on Augmentin yesterday, was on Rocephin and the azithromycin here this past week. We will change her antibiotics to cefepime and vanc. Blood cultures and urine cultures were drawn in the emergency room. 4. History of diabetes, but this is treated and A1c was over 12 on the last admission. She was sent home with metformin. We will hold that for now and add sliding scale insulin a.c. and at bedtime, Accu-Cheks for coverage and then can start the metformin back on discharge. 5. Symptomatic anemia. We will type and screen 1 unit of packed red blood cells. We will infuse this and recheck her hemoglobin after infusion. She is on frequent H and Hs, on heparin drip. 6. We will continue her tramadol as needed for pain. 7. Heparin will be DVT prophylaxis and we will start Protonix for PE prevention. 8. Case discussed with Dr. Martin, who agrees with plan. 9. Hospital course dependent on clinical findings. Job ID: [id number]
[2020-11-03 19:49] LABS: Platelet Count 567 thou/uL (130-400)
[2020-11-03 20:55] VITALS: BMI 49.1
[2020-11-03] MEDS ORDERED: medroxyPROGESTERone Acetate 5 MG TAB PO SCH (21:00)
[2020-11-03] MEDS: traMADol HCl 50 MG TAB PO PRN (21:41)
[2020-11-03] MEDS: HumaLOG 300 UNITS/3 ML VIAL SC PRN (21:43)
[2020-11-03] MEDS: medroxyPROGESTERone Acetate 2.5 MG TAB PO SCH (22:21)
[2020-11-03 22:44] LABS: Platelet Count 569 thou/uL (130-400)
[2020-11-04] MEDS: Cefepime 2 GM in Sodium Chloride 0.9% 100 ML IVPB SCH ×3 (00:47→23:55)
[2020-11-04] MEDS: VANCOMYCIN 2 GRAM/400 ML BAG 2 GM in Premix Bag 1 BAG IVPB SCH ×3 (02:07→17:39)
[2020-11-04] MEDS ORDERED: Labetalol HCl 100 MG/20 ML VIAL SLOW IVP SCH (02:45)
[2020-11-04] MEDS: HumaLOG 300 UNITS/3 ML VIAL SC PRN ×4 (05:13→20:47)
[2020-11-04 05:20] LABS: ALT (SGPT) 8 U/L (8-55); AST (SGOT) 9 U/L (5-34); Albumin 3.2 g/dL (3.5-5.0); Alkaline Phosphatase 112 U/L (40-110); Anion Gap 15 mmol/L (10-20); BUN (Urea Nitrogen) 5 mg/dL (7.0-18.7); Bilirubin, Total 0.3 mg/dL (0.2-1.2); CRP (Inflammatory) 21.03 mg/dL (= or < 0.5); Calc. Creatinine Clearance 307 mL/min (70-130); Carbon Dioxide 22 mmol/L (22-29); Chloride 99 mmol/L (98-107); Globulin 4.3 g/dL (2.4-3.5); Glucose 253 mg/dL (70-105); Potassium 3.8 mmol/L (3.5-5.1); Protein, Total 7.5 g/dL (6.0-8.3); Sodium 132 mmol/L (136-145)
[2020-11-04 05:38] LABS: #Basophils 0.1 thou/uL (0.0-0.2); #Eosinphils 0.2 thou/uL (0.0-0.7); #Lymphocytes 2.5 thou/uL (1.20-3.40); #Monocytes 1.5 thou/uL (0.11-0.59); #Neutrophils 18.4 thou/uL (1.40-6.50); %Basophils 0.3 % (0.0-1.0); %Eosinophils 0.7 % (0.0-10.0); %Lymphocytes 10.9 % (21.0-51.0); %Monocytes 6.6 % (0.0-10.0); %Neutrophils 81.5 % (42.0-75.0); Anisocytosis SLIGHT = 6-15 cells (100X) (0-5/hpf); Hypochromia SLIGHT = 6-15 cells (100X) (0-5/hpf); MDiff Complete? YES; Mean Corpuscular Hemoglobin 18.3 pg (27.0-31.0); Mean Corpuscular Volume 63.1 fL (78.0-98.0); Mean Platelet Volume 11.4 fL (7.4-10.4); Microcytosis MODERATE=15-30 cells (100X) (0-5/hpf); Platelet Count 584 thou/uL (130-400); Platelet Morphology Comment Appears Increased; Polychromasia SLIGHT = 2-3 cells (100X) (0-2/hpf); RBC Distribution Width 21.6 % (11.5-14.5); Red Blood Cell (RBC) Count 4.38 mill/uL (4.20-5.40); White Blood Cell (WBC) Count 22.6 thou/uL (4.8-10.8)
[2020-11-04] MEDS: medroxyPROGESTERone Acetate 2.5 MG TAB PO SCH ×3 (08:19→20:39)
[2020-11-04] MEDS: Polyethylene Glycol 3350 17 GM Packet PO SCH (08:19)
[2020-11-04] MEDS: traMADol HCl 50 MG TAB PO PRN ×2 (08:27→20:38)
[2020-11-04] MEDS ORDERED: Ondansetron ODT 4 MG TAB PO PRN (08:41)
[2020-11-04] MEDS ORDERED: HYDROcodone/Acetaminophen 5/325 mg Tablet PO PRN (08:41)
[2020-11-04] MEDS ORDERED: Loperamide HCl 2 MG CAP PO PRN (08:41)
[2020-11-04] MEDS ORDERED: Ondansetron PF 4 MG/2 ML Vial IVP PRN (08:41)
[2020-11-04] MEDS ORDERED: Cepastat Lozenges 1 LOZ PO PRN (08:41)
[2020-11-04] MEDS ORDERED: Calcium Carbonate 500 MG ChewTAB PO PRN (08:41)
[2020-11-04] MEDS ORDERED: Zolpidem Tartrate 5 MG TAB PO PRN (08:41)
[2020-11-04] MEDS ORDERED: Loratadine 10 MG TAB PO PRN (08:41)
[2020-11-04] MEDS ORDERED: Sodium Chloride 0.65% Nasal 44 ML BOT EA NARE PRN (08:41)
--- NOTE | 2020-11-04 11:47 | PDOC.HOSPP ---
- Subjective Encounter Date: 11/04/20 Encounter Time: 10:15 Subjective: Patient seen and examined bedside today, currently patient is on heparin drip, yesterday patient has a large blood clot through vagina, - Objective Vital Signs & Weight: Vital Signs (12 hours) Temp Pulse Resp BP BP Pulse Ox 11/04/20 10:00 98.0 F 79 18 160/92 H 95 11/04/20 05:50 91 168/96 H 11/04/20 05:19 97.7 F 94 26 H 96 11/04/20 05:07 100 202/104 H 11/04/20 02:51 95 178/98 H 11/04/20 02:13 97 191/109 H 11/04/20 00:51 98 191/99 H Weight Weight 333 lb 1.895 oz I&O: 11/03/20 11/04/20 11/05/20 06:59 06:59 06:59 Intake Total 1215 Balance 1215 Result Diagrams: 11/04/20 04:49 11/04/20 04:49 Additional Labs: Accuchecks 11/04/20 11/03/20 05:05 19:48 POC Glucose 237 H 235 H Hospitalist ROS - Review of Systems ENT: denies: ear pain, ear discharge, nose pain, nose discharge, nose congestion, mouth pain, mouth swelling, throat pain, throat swelling, other Respiratory: denies: cough, dry, shortness of breath, hemoptysis, SOB with excertion, pleuritic pain, sputum, wheezing, other Cardiovascular: denies: chest pain, palpitations, orthopnea, paroxysmal noc. dyspnea, edema, light headedness, other Gastrointestinal: denies: nausea, vomiting, abdominal pain, diarrhea, constipation, melena, hematochezia, other Genitourinary: denies: dysuria, frequency, incontinence, hematuria, retention, other Musculoskeletal: denies: neck pain, shoulder pain, arm pain, back pain, hand pain, leg pain, foot pain, other - Medication Medications: Active Medications Generic Name Dose Route Start Last Admin Trade Name Freq PRN Reason Stop Dose Admin Cefepime HCl 2 gm/ Sodium 100 mls @ 200 mls/hr 11/04/20 01:00 11/04/20 00:47 Chloride IVPB 100 mls 0100,1300 JENNI Administration Vancomycin HCl 2 gm/ Device 400 mls @ 200 mls/hr 11/04/20 02:00 11/04/20 11:35 IVPB 400 mls 0200,1000,1800 JENNI Administration Insulin Human Lispro 0 units 11/03/20 15:26 11/04/20 11:29 Humalog 300 Units/3 Ml Vial SC 5 unit .MILD SLIDING SCALE PRN Administration Mild Correctional Scale Insulin Human Lispro 0 units 11/03/20 15:26 11/03/20 21:43 Humalog 300 Units/3 Ml Vial SC 2 unit .BEDTIME SLIDING SC PRN Administration Bedtime Correctional Scale Medroxyprogesterone Acetate 10 mg 11/03/20 21:00 11/04/20 08:19 Medroxyprogesterone Acetate 2.5 Mg Tab PO 10 mg TID JENNI Administration Pantoprazole Sodium 40 mg 11/04/20 09:00 11/04/20 08:19 Pantoprazole 40 Mg Tab PO 40 mg DAILY JENNI Administration Polyethylene Glycol 17 gm 11/04/20 09:00 11/04/20 08:19 Polyethylene Glycol 3350 17 Gm Packet PO 17 gm DAILY JENNI Administration Tramadol HCl 50 mg 11/03/20 16:25 11/04/20 08:27 Tramadol Hcl 50 Mg Tab PO 50 mg Q4H PRN Administration Moderate Pain (4-6) Hospitalist Exam Vitals: Vital Signs (12 hours) Temp Pulse Resp BP BP Pulse Ox 11/04/20 10:00 98.0 F 79 18 160/92 H 95 11/04/20 05:50 91 168/96 H 11/04/20 05:19 97.7 F 94 26 H 96 11/04/20 05:07 100 202/104 H 11/04/20 02:51 95 178/98 H 11/04/20 02:13 97 191/109 H 11/04/20 00:51 98 191/99 H Weight Weight 333 lb 1.895 oz General Appearance: NAD, awake alert Eye: PERRL, anicteric sclera ENT: normocephalic atraumatic, no oropharyngeal lesions Neck: supple, symmetric, no JVD, no thyromegaly Heart: no murmur, no gallops, no rubs Respiratory: CTAB, no wheezes, no rales, no ronchi Gastrointestinal: soft, non-tender, non-distended, normal bowel sounds Gastrointestinal - other findings: Obesity noted Extremities: no clubbing, no edema Skin: normal turgor, no lesions Neurological: no focal deficits Musculoskeletal: normal tone, normal strength Psychiatric: normal affect, normal behavior Hosp A/P (1) Menorrhagia Code(s): N92.0 - EXCESSIVE AND FREQUENT MENSTRUATION WITH REGULAR CYCLE Status: Acute (2) Morbid obesity with BMI of 50.0-59.9, adult Code(s): E66.01 - MORBID (SEVERE) OBESITY DUE TO EXCESS CALORIES; Z68.43 - BODY MASS INDEX [BMI] 50.0-59.9, ADULT Status: Acute (3) Pelvic mass Code(s): R19.00 - INTRA-ABD AND PELVIC SWELLING, MASS AND LUMP, UNSP SITE Status: Acute (4) Pneumonia Code(s): J18.9 - PNEUMONIA, UNSPECIFIED ORGANISM Status: Acute (5) Pulmonary embolism Code(s): I26.99 - OTHER PULMONARY EMBOLISM WITHOUT ACUTE COR PULMONALE Status: Acute Qualifiers: (6) Pulmonary infarction Code(s): I26.99 - OTHER PULMONARY EMBOLISM WITHOUT ACUTE COR PULMONALE Status: Acute (7) Iron deficiency anemia Code(s): D50.9 - IRON DEFICIENCY ANEMIA, UNSPECIFIED Status: Chronic Qualifiers: (8) Uncontrolled type 2 diabetes mellitus Code(s): E11.65 - TYPE 2 DIABETES MELLITUS WITH HYPERGLYCEMIA Status: Chronic Qualifiers: - Plan old records reviewed/req, continue antibiotics Continue medroxyprogesterone acetate 10 mg 3 times daily for menorrhagia controlled Add ferrous sulfate 325 mg p.o. 2 times daily Continue heparin drip, once heparin drip is finished then will resume Eliquis We will monitor today We will repeat labs tomorrow Patient will need evaluation by CHANGE MANAGEMENT ADMINISTRATOR as an outpatient basis for ongoing care, I have discussed with the patient in detail and answered all her question
--- NOTE | 2020-11-04 16:16 | CON ---
DATE OF CONSULTATION: 11/04/2020 REASON FOR CONSULTATION: Pulmonary embolism plus-minus pneumonia, ovarian cyst. HISTORY OF PRESENT ILLNESS: A 30-year-old, who has a history of obesity with sleep apnea and chronic home use of CPAP mask, who developed progressively worsening dyspnea starting 4 days before her first admission on October 30. She was initially seen at [facility] for dyspnea and she has had a chest x-ray, which showed pleural effusion on the left side. She was referred to [facility], where a CT angio demonstrated quite extensive pulmonary embolism in the left lung arterial system, associated with a moderate pleural effusion. She had a CT abdomen and pelvis, which demonstrated a large left adnexal mass, the venous duplex ultrasound did not show any evidence of lower extremity vein thrombosis. She was treated with Lovenox, antimicrobial therapy, and then discharged on Eliquis, metformin, tramadol, medroxyprogesterone, and amoxicillin and clavulanic acid. She went home and returned 1 or 2 days later with persistence of vaginal bleeding. Initial findings included a BP of 140/60, heart rate 118, temperature 98.3, saturations were 95 on room air. She did not appear in distress. The exam was fairly unremarkable. EKG showed atrial tachycardia. She has been given cefepime, vancomycin, insulin, Ambien, pantoprazole, medroxyprogesterone. Currently, Ms. Golden is using her CPAP mask as she usually does at home sometimes, but particularly since this pulmonary embolism. She denies any headaches. She has chest pain in the left submammary region, and she has no sputum production or cough. No back pain. She has abdominal pain in the left lower quadrant, which has been present 1 day before the last admission. No genitourinary symptoms. No joint symptoms. No neurological symptoms. No history of weight loss. MEDICAL HISTORY: Obesity, sleep apnea, oral and nasal CPAP at home. She also has a history of cutaneous abscess in the abdominal region a few years ago. SOCIAL HISTORY: She works as an illustrator. Never smoker. Lives with family in the area. ALLERGIES: SHELLFISH. CURRENT MEDICATIONS: 1. Inhalers. 2. Cefepime. 3. Dextrose. 4. Feosol. 5. [place]. 6. Insulin. 7. Imodium. 8. Claritin. 9. Provera. 10. Zofran. 11. Senokot. 12. Tramadol. 13. Vancomycin. PHYSICAL EXAMINATION: VITAL SIGNS: She has been afebrile. BP 170/88, heart rate 94, respirations 18 to 20, and O2 saturation 95. SKIN: Normal. She has a peripheral IV access. She is voiding in the toilet. She has no lymphadenopathy. HEENT: Ocular movements conjugate. Oral cavity normal. NECK: Supple. No jugular vein distention. LUNGS: With diminished breath sounds in the left base. No wheezing. A few crackles there. HEART: S1 and S2, regular rate. No S3 or S4. ABDOMEN: Soft with mild tenderness in the left lower quadrant. No ascites. No bladder distention. EXTREMITIES: No joint inflammatory activity. No edema. Pulses 1+ in dorsalis pedis. Plantar response flexor. Moves extremities equally. NEUROLOGIC: Cognitive function appears to be intact. LABORATORY DATA: White cell count 21.2 and 22.6, hemoglobin was 7.7 and 8, MCV 60, platelets 519, and 12% bands. Smear with anisocytosis. INR was 1.4, PTT 38 and 40. CRP 20. SARS-CoV-2 was not detected in August and on October 30 when checked. Urinalysis normal except for some proteinuria. CA-125 was elevated at 53. TSH normal. negative. Glucose was 253. Chest x-ray was repeated this time and it showed persistent left basilar pleural parenchymal opacity, right lung clear. The previous imaging studies included an abdomen and pelvis CT from November 01, which demonstrated a complex pelvic mass measuring 8.5 x 8.4 x 6.7. The spleen was noted to be enlarged. The liver also appeared to be enlarged. There was a dense pleural parenchymal opacity in left base. A CT angiogram which was done two days before this abdomen imaging study, demonstrated suspicion for occlusive thrombus in the left lower lobar pulmonary artery as well as partially occlusive filling defects suspected within the segmental branches of the left lower lobe, and moderate left-sided pleural effusion. There is fatty infiltration and hepatomegaly. Venogram was negative. ASSESSMENT: 1. Obesity; sleep apnea; ovarian or adnexal mass, likely in the left ovary. 2. Lobar pulmonary embolism with associated parenchymal changes. 3. Vaginal bleeding. DISCUSSION: The patient likely has a hypercoagulability and embolism associated with the pelvic mass. Pelvic mass lesions can be malignant and associated with hypercoagulability, in addition to that, they can obstruct local pelvic veins and lead to thrombosis and then embolism. This would explain why no areas of thrombosis were noted in the lower extremity veins. If she has malignancy, then those cases are tend to be somewhat refractory to anticoagulation and she might need placement of an IVC filter, particularly in view of the persistence of vaginal bleeding. Regarding the concurrent presence of infectious pneumonitis, I think that is not likely, pulmonary embolism can mimic all the radiological and clinical findings of pneumonia, and in her case, all the changes can be explained by the embolism. So, I would recommend discontinuation of antimicrobial therapy and focus on only probably placement of an IVC filter in view of the recurrent episodes of vaginal bleeding until the nature of the mass is clarified and treated, at that time, then the IVC filter can be retrieved and she can be placed on anticoagulation. Job ID: [id number]
[2020-11-04] MEDS: Ferrous Sulfate 325 MG TAB PO SCH (17:39)
[2020-11-04] MEDS: GUAIFENESIN SF SOLN 200 MG/10 ML UDCUP PO PRN (21:04)
[2020-11-04] MEDS: hydrALAZINE 20 MG/ML VIAL SLOW IVP PRN (23:45)
[2020-11-05] MEDS: VANCOMYCIN 2 GRAM/400 ML BAG 2 GM in Premix Bag 1 BAG IVPB SCH (01:36)
[2020-11-05] MEDS: hydrALAZINE 20 MG/ML VIAL SLOW IVP PRN ×2 (05:35→20:19)
[2020-11-05] MEDS: HumaLOG 300 UNITS/3 ML VIAL SC PRN ×3 (06:01→18:18)
[2020-11-05 06:17] LABS: ALT (SGPT) 8 U/L (8-55); AST (SGOT) 9 U/L (5-34); Albumin 3.1 g/dL (3.5-5.0); Alkaline Phosphatase 108 U/L (40-110); Anion Gap 14 mmol/L (10-20); BUN (Urea Nitrogen) 6 mg/dL (7.0-18.7); Bilirubin, Total 0.3 mg/dL (0.2-1.2); Calc. Creatinine Clearance 335 mL/min (70-130); Calcium 8.6 mg/dL (7.8-10.44); Carbon Dioxide 23 mmol/L (22-29); Chloride 96 mmol/L (98-107); Globulin 4.1 g/dL (2.4-3.5); Glucose 245 mg/dL (70-105); Potassium 3.7 mmol/L (3.5-5.1); Protein, Total 7.2 g/dL (6.0-8.3); Sodium 129 mmol/L (136-145)
[2020-11-05 06:59] LABS: Hemoglobin 7.4 g/dL (12.0-16.0); Mean Corpuscular HGB CONC 28.6 g/dL (32.0-36.0); Mean Corpuscular Hemoglobin 17.8 pg (27.0-31.0); Mean Corpuscular Volume 62.4 fL (78.0-98.0); Mean Platelet Volume 6.2 fL (7.4-10.4); Platelet Count 553 thou/uL (130-400); Red Blood Cell (RBC) Count 4.13 mill/uL (4.20-5.40); White Blood Cell (WBC) Count 24.1 thou/uL (4.8-10.8)
[2020-11-05] MEDS ORDERED: HumaLOG 300 UNITS/3 ML VIAL SC PRN (08:26)
[2020-11-05 09:16] LABS: #Basophils 0.1 thou/uL (0.0-0.2); #Eosinphils 0.2 thou/uL (0.0-0.7); #Lymphocytes 2.4 thou/uL (1.20-3.40); #Monocytes 1.7 thou/uL (0.11-0.59); #Neutrophils 19.7 thou/uL (1.40-6.50); %Basophils 0.2 % (0.0-1.0); %Eosinophils 0.9 % (0.0-10.0); %Monocytes 6.9 % (0.0-10.0); %Neutrophils 81.9 % (42.0-75.0); Hypochromia MODERATE=16-30 cells (100X) (0-5/hpf); Large Platelets MODERATE; MDiff Complete? YES; Microcytosis MODERATE=15-30 cells (100X) (0-5/hpf); Platelet Morphology Comment Appears Increased; Polychromasia SLIGHT = 2-3 cells (100X) (0-2/hpf)
[2020-11-05] MEDS: traMADol HCl 50 MG TAB PO PRN ×2 (09:44→18:18)
[2020-11-05] MEDS: Ferrous Sulfate 325 MG TAB PO SCH ×2 (09:44→16:39)
[2020-11-05] MEDS: Polyethylene Glycol 3350 17 GM Packet PO SCH (09:46)
[2020-11-05] MEDS ORDERED: Iron, Sodium Ferric Gluconate 250 MG in Sodium Chloride 0.9% 100 ML IVPB SCH (10:30)
[2020-11-05] MEDS: medroxyPROGESTERone Acetate 2.5 MG TAB PO SCH ×3 (11:25→20:19)
[2020-11-05] MEDS: Apixaban 5 MG TAB PO SCH ×2 (11:26→20:19)
[2020-11-05] MEDS: Lisinopril 10 MG TAB PO SCH (11:29)
--- NOTE | 2020-11-05 13:19 | PDOC.HOSPP ---
- Subjective Encounter Date: 11/05/20 Encounter Time: 10:30 Subjective: Patient blood pressure is very high, patient is not comfortable to go home today, we have started Eliquis, patient is still complaining of menorrhagia, her hemoglobin reduced, - Objective Vital Signs & Weight: Vital Signs (12 hours) Temp Pulse Resp BP BP BP Pulse Ox 11/05/20 11:29 178/108 H 11/05/20 11:20 98.4 F 105 H 20 178/108 H 98 11/05/20 08:00 98.4 F 102 H 20 170/85 H 98 11/05/20 06:30 104 H 192/91 H 11/05/20 05:35 98 11/05/20 04:00 98.9 F 98 25 H 203/119 H 96 Weight Weight 364 lb 3.258 oz I&O: 11/04/20 11/05/20 11/06/20 06:59 06:59 06:59 Intake Total 1215 240 240 Balance 1215 240 240 Result Diagrams: 11/05/20 05:21 11/05/20 05:21 Additional Labs: Accuchecks 11/05/20 11/05/20 11/04/20 11:29 06:00 20:46 POC Glucose 249 H 229 H 256 H 11/04/20 11/04/20 16:36 11:24 POC Glucose 254 H 304 H Hospitalist ROS - Review of Systems Constitutional: reports: weakness. denies: fever, chills, sweats, malaise, other ENT: denies: ear pain, ear discharge, nose pain, nose discharge, nose congestion, mouth pain, mouth swelling, throat pain, throat swelling, other Respiratory: denies: cough, dry, shortness of breath, hemoptysis, SOB with excertion, pleuritic pain, sputum, wheezing, other Cardiovascular: denies: chest pain, palpitations, orthopnea, paroxysmal noc. dyspnea, edema, light headedness, other Gastrointestinal: denies: nausea, vomiting, abdominal pain, diarrhea, constipation, melena, hematochezia, other Genitourinary: denies: dysuria, frequency, incontinence, hematuria, retention, other - Medication Medications: Active Medications Generic Name Dose Route Start Last Admin Trade Name Freq PRN Reason Stop Dose Admin Apixaban 5 mg 11/05/20 09:00 11/05/20 11:26 Apixaban 5 Mg Tab PO 5 mg BID JENNI Administration Ferrous Sulfate 325 mg 11/04/20 17:00 11/05/20 09:44 Ferrous Sulfate 325 Mg Tab PO 325 mg BID-WM JENNI Administration Guaifenesin 200 mg 11/04/20 08:41 11/04/20 21:04 Guaifenesin Sf Soln 200 Mg/10 Ml Udcup PO 200 mg Q4H PRN Administration Cough Hydralazine HCl 10 mg 11/04/20 08:41 11/05/20 05:35 Hydralazine 20 Mg/Ml Vial SLOW IVP 10 mg Q4H PRN Administration SBP > 180 and HR < 70 Insulin Human Lispro 0 units 11/05/20 08:26 11/05/20 12:06 Humalog 300 Units/3 Ml Vial SC 6 unit .AGGRESSIVE SLIDING PRN Administration Aggressive Correctional Scale Lisinopril 10 mg 11/05/20 09:00 11/05/20 11:29 Lisinopril 10 Mg Tab PO 10 mg DAILY JENNI Administration Medroxyprogesterone Acetate 10 mg 11/03/20 21:00 11/05/20 11:25 Medroxyprogesterone Acetate 2.5 Mg Tab PO 10 mg TID JENNI Administration Pantoprazole Sodium 40 mg 11/04/20 09:00 11/05/20 11:26 Pantoprazole 40 Mg Tab PO 40 mg DAILY JENNI Administration Polyethylene Glycol 17 gm 11/04/20 09:00 11/05/20 09:46 Polyethylene Glycol 3350 17 Gm Packet PO 17 gm DAILY JENNI Administration Senna/Docusate Sodium 2 tab 11/03/20 15:19 11/04/20 20:38 Senokot S 8.6-50 Mg Tab PO 2 tab BIDPRN PRN Administration Constipation Hospitalist Exam Vitals: Vital Signs (12 hours) Temp Pulse Resp BP BP BP Pulse Ox 11/05/20 11:29 178/108 H 11/05/20 11:20 98.4 F 105 H 20 178/108 H 98 11/05/20 08:00 98.4 F 102 H 20 170/85 H 98 11/05/20 06:30 104 H 192/91 H 11/05/20 05:35 98 11/05/20 04:00 98.9 F 98 25 H 203/119 H 96 Weight Weight 364 lb 3.258 oz General Appearance: NAD, awake alert Eye: PERRL, anicteric sclera ENT: normocephalic atraumatic, no oropharyngeal lesions Neck: supple, symmetric, no JVD, no thyromegaly Heart: no murmur, no gallops, no rubs Respiratory: no wheezes, no rales, no ronchi Gastrointestinal: soft, non-tender, non-distended, normal bowel sounds Extremities: no clubbing, no edema Skin: normal turgor, no lesions Neurological: no focal deficits Musculoskeletal: normal tone, normal strength Psychiatric: normal affect, normal behavior Hosp A/P (1) Menorrhagia Code(s): N92.0 - EXCESSIVE AND FREQUENT MENSTRUATION WITH REGULAR CYCLE Status: Acute (2) Morbid obesity with BMI of 50.0-59.9, adult Code(s): E66.01 - MORBID (SEVERE) OBESITY DUE TO EXCESS CALORIES; Z68.43 - BODY MASS INDEX [BMI] 50.0-59.9, ADULT Status: Acute (3) Pelvic mass Code(s): R19.00 - INTRA-ABD AND PELVIC SWELLING, MASS AND LUMP, UNSP SITE Status: Acute (4) Pneumonia Code(s): J18.9 - PNEUMONIA, UNSPECIFIED ORGANISM Status: Acute (5) Pulmonary embolism Code(s): I26.99 - OTHER PULMONARY EMBOLISM WITHOUT ACUTE COR PULMONALE Status: Acute Qualifiers: (6) Pulmonary infarction Code(s): I26.99 - OTHER PULMONARY EMBOLISM WITHOUT ACUTE COR PULMONALE Status: Acute (7) Iron deficiency anemia Code(s): D50.9 - IRON DEFICIENCY ANEMIA, UNSPECIFIED Status: Chronic Qualifiers: (8) Uncontrolled type 2 diabetes mellitus Code(s): E11.65 - TYPE 2 DIABETES MELLITUS WITH HYPERGLYCEMIA Status: Chronic Qualifiers: - Plan old records reviewed/req, plan discussed w/ family Continue medroxyprogesterone acetate 10 mg 3 times daily for menorrhagia controlled Add ferrous sulfate 325 mg p.o. 2 times daily We will also give her IV iron infusion if she tolerates after test dose Continue Eliquis BELLY DANCER to decide about specific plan regarding her pelvic mass We will discontinue antibiotic therapy as no evidence of infection, ID recommendation appreciated Blood pressure is very high, will start lisinopril and Coreg Diabetic diet Aggressive sliding scale insulin Add glipizide and Metformin Change to inpatient status
[2020-11-05 16:02] LABS: Hemoglobin 7.7 g/dL (12.0-16.0); Platelet Count 579 thou/uL (130-400)
[2020-11-05] MEDS: metFORMIN 500 MG TAB PO SCH (16:37)
[2020-11-05] MEDS: Carvedilol 6.25 MG TAB PO SCH (16:38)
[2020-11-05] MEDS: glipiZIDE 5 MG TAB PO SCH (16:39)
[2020-11-05] MEDS: GUAIFENESIN SF SOLN 200 MG/10 ML UDCUP PO PRN (18:23)
[2020-11-06] MEDS: traMADol HCl 50 MG TAB PO PRN ×2 (04:53→17:31)
[2020-11-06] MEDS: HumaLOG 300 UNITS/3 ML VIAL SC PRN ×2 (05:59→12:24)
[2020-11-06] MEDS ORDERED: Iron, Sodium Ferric Gluconate 125 MG in Sodium Chloride 0.9% 100 ML IVPB SCH (08:30)
[2020-11-06] MEDS: GUAIFENESIN SF SOLN 200 MG/10 ML UDCUP PO PRN ×2 (10:17→15:06)
[2020-11-06] MEDS: metFORMIN 500 MG TAB PO SCH ×2 (10:18→17:33)
[2020-11-06] MEDS: Ferrous Sulfate 325 MG TAB PO SCH ×2 (10:18→17:32)
[2020-11-06] MEDS: Apixaban 5 MG TAB PO SCH ×2 (10:18→21:01)
[2020-11-06] MEDS: Carvedilol 6.25 MG TAB PO SCH ×2 (10:18→17:33)
[2020-11-06] MEDS: Lisinopril 10 MG TAB PO SCH (10:19)
[2020-11-06] MEDS: Polyethylene Glycol 3350 17 GM Packet PO SCH (10:19)
[2020-11-06] MEDS: glipiZIDE 5 MG TAB PO SCH ×2 (10:19→17:33)
--- NOTE | 2020-11-06 11:22 | PDOC.HOSPP ---
- Subjective Encounter Date: 11/06/20 Encounter Time: 10:45 Subjective: Patient has decreasing vaginal bleeding, her blood pressure is still high, patient is not feeling well enough to go home today - Objective Vital Signs & Weight: Vital Signs (12 hours) Temp Pulse Resp BP Pulse Ox 11/06/20 04:21 97.6 F 94 23 H 149/86 H 97 11/06/20 00:00 97.2 F L 93 159/90 H 97 Weight Weight 348 lb 8.813 oz I&O: 11/05/20 11/06/20 11/07/20 06:59 06:59 06:59 Intake Total 240 240 Balance 240 240 Result Diagrams: 11/05/20 15:53 11/05/20 05:21 Additional Labs: Accuchecks 11/06/20 11/05/20 11/05/20 05:55 20:35 16:57 POC Glucose 201 H 189 H 213 H 11/05/20 11:29 POC Glucose 249 H Hospitalist ROS - Review of Systems Constitutional: reports: weakness. denies: fever, chills, sweats, malaise, other Respiratory: denies: cough, dry, shortness of breath, hemoptysis, SOB with excertion, pleuritic pain, sputum, wheezing, other Cardiovascular: denies: chest pain, palpitations, orthopnea, paroxysmal noc. dyspnea, edema, light headedness, other Gastrointestinal: denies: nausea, vomiting, abdominal pain, diarrhea, cons tipation, melena, hematochezia, other Genitourinary: denies: dysuria, frequency, incontinence, hematuria, retention, other Musculoskeletal: denies: neck pain, shoulder pain, arm pain, back pain, hand pain, leg pain, foot pain, other Skin: denies: rash, lesions, rick, bruising, other - Medication Medications: Active Medications Generic Name Dose Route Start Last Admin Trade Name Freq PRN Reason Stop Dose Admin Apixaban 5 mg 11/05/20 09:00 11/06/20 10:18 Apixaban 5 Mg Tab PO 5 mg BID JENNI Administration Carvedilol 6.25 mg 11/05/20 17:00 11/06/20 10:18 Carvedilol 6.25 Mg Tab PO 6.25 mg BID-WM JENNI Administration Ferrous Sulfate 325 mg 11/04/20 17:00 11/06/20 10:18 Ferrous Sulfate 325 Mg Tab PO 325 mg BID-WM JENNI Administration Glipizide 5 mg 11/05/20 16:30 11/06/20 10:19 Glipizide 5 Mg Tab PO 5 mg BID-AC JENNI Administration Guaifenesin 200 mg 11/04/20 08:41 11/06/20 10:17 Guaifenesin Sf Soln 200 Mg/10 Ml Udcup PO 200 mg Q4H PRN Administration Cough Hydralazine HCl 10 mg 11/04/20 08:41 11/05/20 20:19 Hydralazine 20 Mg/Ml Vial SLOW IVP 10 mg Q4H PRN Administration SBP > 180 and HR < 70 Ferric Sodium Gluconate 110 mls @ 110 mls/hr 11/06/20 08:30 11/06/20 10:17 Complex 125 mg/ Sodium IVPB 11/06/20 12:00 110 mls Chloride NOW JENNI Administration Insulin Human Lispro 0 units 11/05/20 08:26 11/06/20 05:59 Humalog 300 Units/3 Ml Vial SC 6 unit .AGGRESSIVE SLIDING PRN Administration Aggressive Correctional Scale Lisinopril 10 mg 11/05/20 09:00 11/06/20 10:19 Lisinopril 10 Mg Tab PO 10 mg DAILY JENNI Administration Medroxyprogesterone Acetate 10 mg 11/03/20 21:00 11/05/20 20:19 Medroxyprogesterone Acetate 2.5 Mg Tab PO 10 mg TID JENNI Administration Metformin HCl 1,000 mg 11/05/20 17:00 11/06/20 10:18 Metformin 500 Mg Tab PO 1,000 mg BID-WM JENNI Administration Pantoprazole Sodium 40 mg 11/04/20 09:00 11/06/20 10:18 Pantoprazole 40 Mg Tab PO 40 mg DAILY JENNI Administration Polyethylene Glycol 17 gm 11/04/20 09:00 11/06/20 10:19 Polyethylene Glycol 3350 17 Gm Packet PO 17 gm DAILY JENNI Administration Senna/Docusate Sodium 2 tab 11/03/20 15:19 11/04/20 20:38 Senokot S 8.6-50 Mg Tab PO 2 tab BIDPRN PRN Administration Constipation Tramadol HCl 50 mg 11/05/20 08:29 11/06/20 04:53 Tramadol Hcl 50 Mg Tab PO 50 mg QID PRN Administration Pain Hospitalist Exam Vitals: Vital Signs (12 hours) Temp Pulse Resp BP Pulse Ox 11/06/20 04:21 97.6 F 94 23 H 149/86 H 97 11/06/20 00:00 97.2 F L 93 159/90 H 97 Weight Weight 348 lb 8.813 oz General Appearance: NAD, awake alert Eye: PERRL, anicteric sclera ENT: normocephalic atraumatic, no oropharyngeal lesions Neck: supple, symmetric, no JVD, no thyromegaly Heart: RRR, no murmur, no gallops, no rubs Respiratory: no wheezes, no rales, no ronchi Gastrointestinal: soft, non-tender, non-distended, normal bowel sounds Gastrointestinal - other findings: Morbid obesity noted Extremities: no clubbing, no edema Skin: normal turgor, no lesions Neurological: no focal deficits Musculoskeletal: normal tone, normal strength Psychiatric: normal affect, normal behavior Hosp A/P (1) Pulmonary embolism Code(s): I26.99 - OTHER PULMONARY EMBOLISM WITHOUT ACUTE COR PULMONALE Status: Acute Qualifiers: (2) Menorrhagia Code(s): N92.0 - EXCESSIVE AND FREQUENT MENSTRUATION WITH REGULAR CYCLE Status: Acute (3) Morbid obesity with BMI of 50.0-59.9, adult Code(s): E66.01 - MORBID (SEVERE) OBESITY DUE TO EXCESS CALORIES; Z68.43 - BODY MASS INDEX [BMI] 50.0-59.9, ADULT Status: Chronic (4) Pelvic mass Code(s): R19.00 - INTRA-ABD AND PELVIC SWELLING, MASS AND LUMP, UNSP SITE Status: Acute (5) Pneumonia Code(s): J18.9 - PNEUMONIA, UNSPECIFIED ORGANISM Status: Resolved (6) Pulmonary infarction Code(s): I26.99 - OTHER PULMONARY EMBOLISM WITHOUT ACUTE COR PULMONALE Status: Acute (7) Iron deficiency anemia Code(s): D50.9 - IRON DEFICIENCY ANEMIA, UNSPECIFIED Status: Chronic Qualifiers: (8) Uncontrolled type 2 diabetes mellitus Code(s): E11.65 - TYPE 2 DIABETES MELLITUS WITH HYPERGLYCEMIA Status: Chronic Qualifiers: (9) Hypertension Code(s): I10 - ESSENTIAL (PRIMARY) HYPERTENSION Status: Chronic Qualifiers: Hypertension type: essential hypertension Qualified Code(s): I10 - Essenti al (primary) hypertension - Plan old records reviewed/req Continue medroxyprogesterone acetate 10 mg 3 times daily for menorrhagia control Add ferrous sulfate 325 mg p.o. 2 times daily Continue IV iron Continue Eliquis Patient will need outpatient follow-up with [facility] for pelvic mass Today we will increase Coreg 12.5 mg twice daily Diabetic diet Aggressive sliding scale insulin Continue glipizide and Metformin Expecting discharge tomorrow
[2020-11-06] MEDS: medroxyPROGESTERone Acetate 2.5 MG TAB PO SCH ×3 (12:21→21:01)
[2020-11-07] MEDS: GUAIFENESIN SF SOLN 200 MG/10 ML UDCUP PO PRN (02:51)
[2020-11-07] MEDS: traMADol HCl 50 MG TAB PO PRN (02:51)
--- NOTE | 2020-11-07 08:17 | PDOC.HOSPP ---
- Subjective Encounter Date: 11/07/20 Encounter Time: 10:00 Subjective: Patient reports decreased vaginal bleeding now about a light period level. She has been ambulating well. She has been very anxious about her bleeding and about her diagnosis. She does report some cough with a small amount of brown or red mixed in occasionally. No large blood clots from her sputum. - Objective Vital Signs & Weight: Vital Signs (12 hours) Temp Pulse Resp BP Pulse Ox 11/07/20 03:50 98 F 90 24 H 153/74 H 99 11/06/20 23:15 97.6 F 89 26 H 130/77 96 Weight Weight 348 lb 8.813 oz I&O: 11/06/20 11/07/20 11/08/20 06:59 06:59 06:59 Intake Total 240 Balance 240 Result Diagrams: 11/07/20 08:39 11/05/20 05:21 Additional Labs: Accuchecks 11/07/20 11/06/20 11/06/20 06:02 16:53 11:16 POC Glucose 145 H 131 H 208 H Hospitalist ROS - Review of Systems Constitutional: denies: fever, chills Respiratory: reports: cough, sputum. denies: shortness of breath, SOB with excertion Cardiovascular: denies: chest pain, palpitations Gastrointestinal: denies: nausea, vomiting, abdominal pain Genitourinary: reports: other (See history). denies: dysuria, hematuria - Medication Medications: Active Medications Generic Name Dose Route Start Last Admin Trade Name Freq PRN Reason Stop Dose Admin Apixaban 5 mg 11/05/20 09:00 11/06/20 21:01 Apixaban 5 Mg Tab PO 5 mg BID JENNI Administration Carvedilol 12.5 mg 11/06/20 17:00 11/06/20 17:33 Carvedilol 6.25 Mg Tab PO 12.5 mg BID-WM JENNI Administration Ferrous Sulfate 325 mg 11/04/20 17:00 11/06/20 17:32 Ferrous Sulfate 325 Mg Tab PO 325 mg BID-WM JENNI Administration Glipizide 5 mg 11/05/20 16:30 11/06/20 17:33 Glipizide 5 Mg Tab PO 5 mg BID-AC JENNI Administration Guaifenesin 200 mg 11/04/20 08:41 11/07/20 02:51 Guaifenesin Sf Soln 200 Mg/10 Ml Udcup PO 200 mg Q4H PRN Administration Cough Hydralazine HCl 10 mg 11/04/20 08:41 11/05/20 20:19 Hydralazine 20 Mg/Ml Vial SLOW IVP 10 mg Q4H PRN Administration SBP > 180 and HR < 70 Insulin Human Lispro 0 units 11/05/20 08:26 11/06/20 12:24 Humalog 300 Units/3 Ml Vial SC 6 unit .AGGRESSIVE SLIDING PRN Administration Aggressive Correctional Scale Lisinopril 10 mg 11/05/20 09:00 11/06/20 10:19 Lisinopril 10 Mg Tab PO 10 mg DAILY JENNI Administration Medroxyprogesterone Acetate 10 mg 11/03/20 21:00 11/06/20 21:01 Medroxyprogesterone Acetate 2.5 Mg Tab PO 10 mg TID JENNI Administration Metformin HCl 1,000 mg 11/05/20 17:00 11/06/20 17:33 Metformin 500 Mg Tab PO 1,000 mg BID-WM JENNI Administration Pantoprazole Sodium 40 mg 11/04/20 09:00 11/06/20 10:18 Pantoprazole 40 Mg Tab PO 40 mg DAILY JENNI Administration Polyethylene Glycol 17 gm 11/04/20 09:00 11/06/20 10:19 Polyethylene Glycol 3350 17 Gm Packet PO 17 gm DAILY JENNI Administration Senna/Docusate Sodium 2 tab 11/03/20 15:19 11/04/20 20:38 Senokot S 8.6-50 Mg Tab PO 2 tab BIDPRN PRN Administration Constipation Tramadol HCl 50 mg 11/05/20 08:29 11/07/20 02:51 Tramadol Hcl 50 Mg Tab PO 50 mg QID PRN Administration Pain Hospitalist Exam Vitals: Vital Signs (12 hours) Temp Pulse Resp BP Pulse Ox 11/07/20 03:50 98 F 90 24 H 153/74 H 99 11/06/20 23:15 97.6 F 89 26 H 130/77 96 Weight Weight 348 lb 8.813 oz General Appearance: NAD, awake alert ENT: moist mucosa Heart: RRR, no murmur, no gallops, no rubs Respiratory: CTAB, no wheezes, no rales, no ronchi, no tachypnea Gastrointestinal: soft, non-tender, non-distended, normal bowel sounds Psychiatric: normal affect, normal behavior, A&O x 3 Hosp A/P - Plan (1) Pulmonary embolism Code(s): I26.99 - OTHER PULMONARY EMBOLISM WITHOUT ACUTE COR PULMONALE Status: Acute Qualifiers: (2) Menorrhagia Code(s): N92.0 - EXCESSIVE AND FREQUENT MENSTRUATION WITH REGULAR CYCLE Status: Acute (3) Morbid obesity with BMI of 50.0-59.9, adult Code(s): E66.01 - MORBID (SEVERE) OBESITY DUE TO EXCESS CALORIES; Z68.43 - BODY MASS INDEX [BMI] 50.0-59.9, ADULT Status: Chronic (4) Pelvic mass Code(s): R19.00 - INTRA-ABD AND PELVIC SWELLING, MASS AND LUMP, UNSP SITE Status: Acute (5) Pneumonia Code(s): J18.9 - PNEUMONIA, UNSPECIFIED ORGANISM Status: Resolved (6) Pulmonary infarction Code(s): I26.99 - OTHER PULMONARY EMBOLISM WITHOUT ACUTE COR PULMONALE Status: Acute (7) Iron deficiency anemia Code(s): D50.9 - IRON DEFICIENCY ANEMIA, UNSPECIFIED Status: Chronic Qualifiers: (8) Uncontrolled type 2 diabetes mellitus Code(s): E11.65 - TYPE 2 DIABETES MELLITUS WITH HYPERGLYCEMIA Status: Chronic Qualifiers: (9) Hypertension Code(s): I10 - ESSENTIAL (PRIMARY) HYPERTENSION Status: Chronic Qualifiers: Hypertension type: essential hypertension Qualified Code(s): I10 - Es sential (primary) hypertension - Plan old records reviewed/req Continue medroxyprogesterone acetate 10 mg 3 times daily for menorrhagia control Add ferrous sulfate 325 mg p.o. 2 times daily Continue Eliquis We increased Coreg 12.5 mg twice daily Diabetic diet Aggressive sliding scale insulin Continue glipizide and Metformin I called Dr. Blakely's office and they were able to work her in tomorrow morning. We will have patient continue the medroxyprogesterone 3 times a day to prevent severe bleeding and follow-up in the office tomorrow. Patient's vital signs have been stable and her hemoglobin remained stable so she is cleared for discharge.
[2020-11-07] MEDS: Carvedilol 6.25 MG TAB PO SCH (09:55)
[2020-11-07] MEDS: glipiZIDE 5 MG TAB PO SCH (09:55)
[2020-11-07] MEDS: medroxyPROGESTERone Acetate 2.5 MG TAB PO SCH ×2 (09:56→15:47)
[2020-11-07] MEDS: Apixaban 5 MG TAB PO SCH (09:56)
[2020-11-07] MEDS: metFORMIN 500 MG TAB PO SCH (09:56)
[2020-11-07] MEDS: Lisinopril 10 MG TAB PO SCH (09:56)
[2020-11-07] MEDS: Polyethylene Glycol 3350 17 GM Packet PO SCH (09:56)
[2020-11-07] MEDS: Ferrous Sulfate 325 MG TAB PO SCH (09:56)
[2020-11-07 09:57] LABS: Hemoglobin 7.6 g/dL (12.0-16.0); Mean Corpuscular Hemoglobin 18.3 pg (27.0-31.0); Mean Corpuscular Volume 63.2 fL (78.0-98.0); Mean Platelet Volume 6.5 fL (7.4-10.4); Platelet Count 586 thou/uL (130-400); RBC Distribution Width 22.7 % (11.5-14.5); Red Blood Cell (RBC) Count 4.13 mill/uL (4.20-5.40); White Blood Cell (WBC) Count 23.9 thou/uL (4.8-10.8)
[2020-11-07 09:58] LABS: #Basophils 0.1 thou/uL (0.0-0.2); #Eosinphils 0.3 thou/uL (0.0-0.7); #Lymphocytes 2.7 thou/uL (1.20-3.40); #Monocytes 1.4 thou/uL (0.11-0.59); #Neutrophils 19.5 thou/uL (1.40-6.50); %Basophils 0.2 % (0.0-1.0); %Eosinophils 1.4 % (0.0-10.0); %Lymphocytes 11.2 % (21.0-51.0); %Monocytes 5.8 % (0.0-10.0); %Neutrophils 81.4 % (42.0-75.0)
[2020-11-07 11:10] LABS: Band 14 % (5-11); Eosinophils 1 % (0-10); Hypochromia MODERATE=16-30 cells (100X) (0-5/hpf); Lymphocytes 12 % (21-51); MDiff Complete? YES; Metamyelocyte 1 % (0-0); Microcytosis MODERATE=15-30 cells (100X) (0-5/hpf); Monocytes 2 % (0-10); Myelocyte 1 % (0-0); Neutrophil 69 % (42-75); Platelet Morphology Comment Appears Increased; Polychromasia MODERATE = 3-4 cells (100X) (0-2/hpf)
[2020-11-07 14:21] VITALS: BP 122/78; TEMP 98.1
--- NOTE | 2020-11-07 16:24 | PDOC.DS.DS ---
Provider Date of Admission: 11/05/20 12:09 Date of Discharge: 11/07/20 Admitting Provider: Darrel Martin MD Consultations: Infectious Disease (Dr. Mcgovern), OBGYN (Dr. Narayanan) Primary Care Physician: Star Morrow MD Course Hospital Course: This is a 30-year-old female who was in the hospital for newly diagnosed pulmonary embolism and started on anticoagulation. She had developed menorrhagia with large blood clots after anticoagulation. Patient reports that she has had a history of heavy heavy periods with large blood clots for the last 10 years. The bleeding decreased with introduction of medroxyprogesterone and patient was supposed to follow-up with gynecology outpatient. She was discharged but came back the next day with recurrent large blood clots. Final Armature Tester Dr. Narayanan was contacted however we were unable to get an inpatient consultation due to the [employer] group moving down to the [facility]. He recommended a single unit blood transfusion and then increasing medroxyprogesterone to 3 times a day. This decreased patient's bleeding and she was down to less than a normal period bleeding per day. Patient's blood counts been stable for the last 3 days and so she is being discharged home. She does have a gynecology appointment tomorrow morning with Dr. Blakely. Patient did have CT scans done last visit which were concerning for either a fibroid versus cancer of her uterus. She needs work-up of these. We did consult Dr. Mcgovern for elevated white blood cell count and possibility of pneumonia. He determined that her symptoms were all from the pulmonary embolism and recommended stopping antibiotics. He did also raise the possibility of putting an IVC filter and should we be unable to stop her vaginal bleeding so that her anticoagulants coul d be discontinued temporarily until the uterus is taken care of. Pertinent Studies: Transabdominal pelvic ultrasound PROVIDED CLINICAL HISTORY: Vaginal bleeding COMPARISON: 10/31/2020 pelvic ultrasound 11/01/2020 CT abdomen and pelvis FINDINGS: The uterus and right ovary are not discretely identified. Complex left adnexal cystic mass is redemonstrated. No significant free pelvic fluid is evident. IMPRESSION: Large complex left adnexal cystic mass is redemonstrated, cystic ovarian neoplasm not excluded. Uterus and right ovary are not identified. (Below from last hospital visit) CT abdomen and pelvis: 11/01/2020 HISTORY: Pelvic mass on prior ultrasound, vaginal bleeding TECHNIQUE: Axial CT imaging at 5 mm intervals from lung bases through pubic symphysis with IV and oral contrast. Coronal and sagittal reformatted imaging obtained. FINDINGS: There is dense partial consolidation of the visualized left lower lobe with an incompletely imaged moderate-sized left pleural effusion. Right lung base grossly unremarkable. No free intraperitoneal air. The liver appears enlarged, measuring 28.6 cm in craniocaudal dimension. No focal liver lesion. Gallbladder, pancreas, and adrenal glands appear grossly unremarkable. The spleen is enlarged measuring 14.3 cm in craniocaudal dimension. The kidneys appear unremarkable. The endometrial canal is expanded and filled with heterogeneous material. Endometrial canal probably measures in the 4-5 cm range in AP dimension. There is a heterogeneous mass abutting the ventral aspect of the uterus. This mass measures 8.5 x 8.4 x 6.7 cm and demonstrates internal components of varying densities, including components of fluid density and is soft tissue density. No internal fat or calcification is seen involving this mass. It is inseparable from the ventral wall of the uterus. In addition, it appears inseparable from the inferior margin of the left ovary. The right ovary appears grossly unremarkable. The urinary bladder is grossly unremarkable. No evidence for bowel inflammatory change or obstruction. The vascular structures of the abdomen and pelvis appear patent. No abdominal or pelvic adenopathy. Review of the osseous structures demonstrates no worrisome lytic or blastic bone lesions. IMPRESSION: 1. Large complex pelvic mass abutting the ventral aspect of the uterus and abutting the left ovary. Exact location of origin is uncertain. This could rep resent a hemorrhagic/complex mass, including a neoplastic lesion emanating from the left ovary. Necrotic anterior uterine fibroid is a possibility. Nonspecific expanded endometrium containing complex material suspicious for blood or tumor. [employer] consultation advised. 2. Dense pleural-parenchymal opacity in the left base suggests infectious pneumonitis or aspiration. Follow-up imaging of the chest is advised to document resolution and thus exclude an underlying neoplastic process within the left base. CTA Angio Chest W WO Con 10/30/2020 6:35 PM Indication: History of left-sided chest pain Technique: Multiple CTA images were obtained of the thorax with IV contrast. 3- D rendering: MIP reconstructed images were created and reviewed. Comparison: No relevant prior studies available. Findings: Pulmonary arteries: There is lack of opacification of the left lower lobar pulmonary artery and the segmental branches of the left lower lobe suspicious for multifocal left lower lobe lobar and segmental pulmonary emboli. There are some areas of partial opacification involving the apical posterior segment of the left upper lobe suspicious for partially occlusive PE within the left upper lobe. No additional focal PE is grossly evident within the central pulmonary arteries of the right lung. The degree of contrast opacification limits evaluation of the segmental branches of the right lung. Heart and Aorta: There is no evidence to suggest right heart strain. The great vessels of the chest appear within normal limits Mediastinum:Normal appearing. No enlarged lymph nodes. Lungs:There are areas of patchy airspace consolidation in the left lower lobe some which could be related pulmonary infarct or pneumonia. There are calcified granuloma in the left lower lobe, right lower lobe and right upper lobe.. Pleural space: There is a moderate left-sided pleural effusion Upper Abdomen: There is prominent hepatomegaly with fatty infiltration with an area of focal fatty sparing in the left hepatic lobe. Osseous Structures: No acute fracture or subluxation demonstrated. There is scattered degenerative and osteoarthritic change present. Soft tissues:No abnormality. Other findings:None. Impression: 1. Lack of opacification of the left lower lobar pulmonary artery suspicious for occlusive thrombus. There are partially occlusive filling defects suspected within the segmental branches of the left lower lobe suspicious for multifocal segmental pulmonary emboli of the left lower lobe. There is airspace disease of the left lower lobe which can be related to pneumonia or pulmonary infarct. There is suspected reactive moderate left-sided pleural effusion. Findings called to Dr. Huff at 6:45 PM on October 30, 2020. 2. Hepatomegaly with prominent fatty infiltration. 3. Findings of prior granulomatous disease Lab Results: 11/07/20 08:39 11/05/20 05:21 Abnormal Lab Results - Last 48 hrs 11/07/20 08:39: WBC 23.9 H, RBC 4.13 L, Hgb 7.6 L, Hct 26.1 L, MCV 63.2 L, MCH 18.3 L, MCHC 29.0 L, RDW 22.7 H, Plt Count 586 H, MPV 6.5 L, Neutrophils % 81.4 H, Band Neuts % (Manual) 14 H, Lymphocytes % 11.2 L, Lymphocytes % (Manual) 12 L, Myelocytes % 1 H, Neutrophils # 19.5 H, Monocytes # 1.4 H, Hypochromia MODERATE=16-30 cells H, Plt Morphology Comment Appears Increased H, Polychromasia MODERATE = 3-4 cells H, Microcytosis MODERATE=15-30 cells H Microbiology - Entire Visit 11/03/20 12:24 Venous blood - Left Arm Blood Culture - Preliminary NO GROWTH AT 48 HOURS 11/03/20 11:42 Urine Straight Catheter Urine Culture - Final NO GROWTH AT 48 HOURS 11/03/20 12:24 Venous blood - Right Arm Blood Culture - Preliminary NO GROWTH AT 48 HOURS Vitals: Vital Signs (12 hours) Temp Pulse Resp BP BP Pulse Ox 11/07/20 12:00 98.1 F 77 18 122/78 98 11/07/20 08:00 98.2 F 97 18 152/86 H 96 Weight Weight 348 lb 8.813 oz Physical Exam: The patient was seen and examined on the day of discharge. Problem Assessment: (1) Pulmonary embolism (2) Menorrhagia (3) Morbid obesity with BMI of 50.0-59.9, adult (4) Pelvic mass (5) Pneumoniaresolved (6) Pulmonary infarction (7) Iron deficiency anemiastable (8) Uncontrolled type 2 diabetes mellitus (9) Hypertension Plan of Treatment: Continue medroxyprogesterone 10 mg 3 times a day until she sees Dr. Blakely tomorrow. Continue Eliquis twice a day. Return to the ER should severe hemorrhage develop. Time Spent in discharge related activities (mins): 32 Plan Prescriptions: Carvedilol [Coreg] 12.5 mg PO BID-WM #60 tab glipiZIDE [Glucotrol] 5 mg PO BID-AC #60 tab medroxyPROGESTERone Acetate [Medroxyprogesterone Acetate] 10 mg PO TID #30 tablet Lisinopril [Zestril] 10 mg PO DAILY #30 tab Home Medications: Medication Instructions Recorded Confirmed Type Apixaban [Eliquis] 5 mg PO BID #56 tablet 11/01/20 11/03/20 Rx Ferrous Sulfate 325 mg PO BID #60 tablet 11/02/20 11/03/20 Rx metFORMIN [Glucophage] 500 mg PO BID-WM #60 tab 11/02/20 11/03/20 Rx traMADol HCl [Tramadol HCl] 50 mg PO QID PRN #30 tablet 11/02/20 11/03/20 Rx Carvedilol [Coreg] 12.5 mg PO BID-WM #60 tab 11/07/20 Rx Lisinopril [Zestril] 10 mg PO DAILY #30 tab 11/07/20 Rx glipiZIDE [Glucotrol] 5 mg PO BID-AC #60 tab 11/07/20 Rx medroxyPROGESTERone Acetate 10 mg PO TID #30 tablet 11/07/20 Rx [Medroxyprogesterone Acetate] Allergies: shellfish derived Allergy (Verified 10/31/20 05:55) Activity:: Activity as Tolerated Nourishment:: Diabetic Diet Therapies:: Not Applicable Equipment/Supplies:: Not Applicable IV Therapy:: Not Applicable Referrals: Star Morrow MD [Primary Care Provider] - 7 Days Haydee Blakely MD [Active] - 1 Day (call to set up appointment for tomorrow morning) Disposition: HOME Quality CORE MEASURES:: N/A
== END 2020-11-07 15:25 | disposition home or self-care (01) | DRG 175 ==
LOC: ERS 09:26 → 3SE 14:41 → OBSVTOIN 11-05 12:09
PROVIDERS: ADMIT Internal Medicine; ATTEND Emergency Medicine
DX: I26.99 Other pulmonary embolism without acute cor pulmonale (principal); J18.9 Pneumonia, unspecified organism; Z68.43 Body mass index [BMI] 50.0-59.9, adult; N92.0 Excessive and frequent menstruation with regular cycle; D50.9 Iron deficiency anemia, unspecified; E66.01 Morbid (severe) obesity due to excess calories; E11.65 Type 2 diabetes mellitus with hyperglycemia; Z91.013 Allergy to seafood; Z79.01 Long term (current) use of anticoagulants; Z79.84 Long term (current) use of oral hypoglycemic drugs
CPT/HCPCS: 36415; 36416; 36430; 51701; 71045; 76856; 80053; 80202; 81003; 81015; 83605; 84703; 85025; 85610; 85730; 86140; 86850; 86900; 86901; 87040; 87086; 93005; 93976; 96365; 96366; 96367; 96375; 96376; G0378; J0360; J0692; J1644; J1815; J1956; J2916; J3370; J3490; P9016

== ENCOUNTER 2022-02-21 00:17 | Emergency (ER) | payer OTHER ==
[2022-02-21] MEDS ORDERED: Ondansetron ODT 4 MG TAB ONE (00:24)
[2022-02-21] MEDS ORDERED: Ondansetron ODT 8 MG TAB ONE (00:27)
[2022-02-21 00:59] LABS: Mean Corpuscular HGB CONC 32.7 g/dL (32.0-36.0); Mean Corpuscular Hemoglobin 29.1 pg (27.0-31.0); Mean Corpuscular Volume 89.1 fL (78.0-98.0); Platelet Count 382 thou/uL (130-400); RBC Distribution Width 14.7 % (11.5-14.5); Red Blood Cell (RBC) Count 4.11 mill/uL (4.20-5.40); White Blood Cell (WBC) Count 17.7 thou/uL (4.8-10.8)
[2022-02-21 01:00] LABS: #Basophils 0.1 thou/uL (0.0-0.2); #Eosinphils 0.3 thou/uL (0.0-0.7); #Lymphocytes 2.6 thou/uL (1.20-3.40); #Neutrophils 13.7 thou/uL (1.40-6.50); %Basophils 0.7 % (0.0-1.0); %Eosinophils 1.6 % (0.0-10.0); %Lymphocytes 14.4 % (21.0-51.0); %Monocytes 5.8 % (0.0-10.0); %Neutrophils 77.5 % (42.0-75.0)
[2022-02-21] MEDS ORDERED: Ketorolac Tromethamine 30 MG/ML VIAL ONE (01:14)
[2022-02-21 01:15] LABS: ALT (SGPT) 19 U/L (8-55); AST (SGOT) 11 U/L (5-34); Albumin 4.6 g/dL (3.5-5.0); Alkaline Phosphatase 57 U/L (40-110); Anion Gap 18 mmol/L (10-20); BUN (Urea Nitrogen) 53 mg/dL (7.0-18.7); Calc. Creatinine Clearance 0 mL/min (70-130); Calcium 10.1 mg/dL (7.8-10.44); Carbon Dioxide 20 mmol/L (22-29); Chloride 106 mmol/L (98-107); Globulin 4.1 g/dL (2.4-3.5); Glucose 182 mg/dL (70-105); Lipase 32 U/L (8-78); Potassium 4.6 mmol/L (3.5-5.1); Protein, Total 8.7 g/dL (6.0-8.3); Sodium 139 mmol/L (136-145)
[2022-02-21 03:16] LABS: BHCG - Serum Negative (NEGATIVE); Pregs Control Background? CLEAR/WHITE (CLR/WHITE); Pregs Control Bar Appear? YES (CONTROL BAR)
[2022-02-21 03:54] LABS: Bilirubin, Total 0.5 mg/dL (0.2-1.2)
[2022-02-21 03:55] LABS: Bacteria/HPF None Seen HPF (None Seen); Bilirubin Negative (Negative); Blood, Urine 2+ (Negative); Clarity Clear (Clear); Glucose, Urine (Dipstick) Normal (Negative); Ketone, Urine Negative (Negative); Leukocyte 25 Leu/uL (Negative); Nitrite Negative (Negative); Protein, Urine (Dipstick) 20 mg/dL (Neg-Trace); Specific Gravity, Urine 1.017 (1.002-1.036); Squamous Epithelial 0-3 HPF (0-3); Urobilinogen Normal mg/dL (Less than 2); WBC/HPF 0-3 HPF (0-3); pH, Urine 5.5 (5.0-9.0)
[2022-02-21] MEDS ORDERED: ISOVUE-370 76%-LOCM 1 ML ONE (12:13)
== END 2022-02-21 05:38 | disposition home or self-care (01) ==
LOC: ERS 00:17
DX: R10.9 Unspecified abdominal pain (principal); R11.2 Nausea with vomiting, unspecified; E11.9 Type 2 diabetes mellitus without complications; Z86.711 Personal history of pulmonary embolism; Z79.899 Other long term (current) drug therapy; Z79.84 Long term (current) use of oral hypoglycemic drugs; Z79.01 Long term (current) use of anticoagulants
CPT/HCPCS: 36415; 74177; 80053; 81003; 81015; 83690; 84703; 85025; 96360; J1885; Q0162; Q9966

== ENCOUNTER 2022-03-03 11:18 | Emergency (ER) | payer OTHER ==
[2022-03-03 12:01] LABS: #Eosinphils 0.2 thou/uL (0.0-0.7); #Lymphocytes 1.7 thou/uL (1.20-3.40); #Monocytes 0.6 thou/uL (0.11-0.59); #Neutrophils 11.4 thou/uL (1.40-6.50); %Basophils 0.3 % (0.0-1.0); %Eosinophils 1.2 % (0.0-10.0); %Lymphocytes 12.3 % (21.0-51.0); %Monocytes 4.3 % (0.0-10.0); %Neutrophils 81.8 % (42.0-75.0); Hemoglobin 12.2 g/dL (12.0-16.0); Mean Corpuscular HGB CONC 32.7 g/dL (32.0-36.0); Mean Corpuscular Volume 88.8 fL (78.0-98.0); Mean Platelet Volume 8.5 fL (7.4-10.4); Platelet Count 348 thou/uL (130-400); RBC Distribution Width 14.1 % (11.5-14.5); Red Blood Cell (RBC) Count 4.19 mill/uL (4.20-5.40); White Blood Cell (WBC) Count 13.9 thou/uL (4.8-10.8)
[2022-03-03 12:22] LABS: ALT (SGPT) 16 U/L (8-55); AST (SGOT) 10 U/L (5-34); Albumin 4.6 g/dL (3.5-5.0); Alkaline Phosphatase 47 U/L (40-110); Anion Gap 19 mmol/L (10-20); BUN (Urea Nitrogen) 36 mg/dL (7.0-18.7); Bilirubin, Total 0.4 mg/dL (0.2-1.2); Calc. Creatinine Clearance 0 mL/min (70-130); Calcium 10.5 mg/dL (7.8-10.44); Carbon Dioxide 18 mmol/L (22-29); Chloride 104 mmol/L (98-107); Globulin 4.1 g/dL (2.4-3.5); Glucose 153 mg/dL (70-105); Potassium 4.5 mmol/L (3.5-5.1); Protein, Total 8.7 g/dL (6.0-8.3); Sodium 136 mmol/L (136-145)
[2022-03-03 13:37] LABS: BHCG - Serum Negative (NEGATIVE); Pregs Control Background? CLEAR/WHITE (CLR/WHITE); Pregs Control Bar Appear? YES (CONTROL BAR)
[2022-03-03 14:48] LABS: Bilirubin Negative (Negative); Blood, Urine 3+ (Negative); Clarity Turbid (Clear); Glucose, Urine (Dipstick) Normal (Negative); Ketone, Urine Negative (Negative); Leukocyte Negative Leu/uL (Negative); Nitrite Negative (Negative); Protein, Urine (Dipstick) 70 mg/dL (Neg-Trace); RBC/HPF Greater than 50 HPF (0-3); Specific Gravity, Urine 1.022 (1.002-1.036); Squamous Epithelial 0-3 HPF (0-3); Urobilinogen Normal mg/dL (Less than 2); WBC/HPF 0-3 HPF (0-3); pH, Urine 5.5 (5.0-9.0)
[2022-03-03 14:51] LABS: Bacteria/HPF Rare-Few HPF (None Seen)
[2022-03-03] MEDS ORDERED: Morphine 4 MG/ML VIAL ONE (15:22)
[2022-03-03] MEDS ORDERED: Ondansetron PF 4 MG/2 ML Vial ONE (15:22)
[2022-03-03] MEDS ORDERED: Mag-Al 1200 mg/1200 mg/30 ML UDCUP ONE (15:22)
== END 2022-03-03 17:43 | disposition home or self-care (01) ==
LOC: ERS 11:18
DX: N13.2 Hydronephrosis with renal and ureteral calculous obstruction (principal); E11.9 Type 2 diabetes mellitus without complications; Z86.711 Personal history of pulmonary embolism; Z85.43 Personal history of malignant neoplasm of ovary; Z85.42 Personal history of malignant neoplasm of other parts of uterus; Z79.84 Long term (current) use of oral hypoglycemic drugs; Z79.01 Long term (current) use of anticoagulants; Z79.899 Other long term (current) drug therapy
CPT/HCPCS: 36415; 74176; 80053; 81003; 81015; 84703; 85025; 96361; 96374; 96375; J2270; J2405

== ENCOUNTER 2022-04-09 09:30 | Emergency (ER) | payer OTHER ==
[2022-04-09 10:35] LABS: Bilirubin Negative (Negative); Blood, Urine 3+ (Negative); Clarity Clear (Clear); Glucose, Urine (Dipstick) Normal (Negative); Ketone, Urine Negative (Negative); Leukocyte 75 Leu/uL (Negative); Nitrite Negative (Negative); Protein, Urine (Dipstick) 30 mg/dL (Neg-Trace); RBC/HPF Greater than 50 HPF (0-3); Specific Gravity, Urine 1.021 (1.002-1.036); Urobilinogen Normal mg/dL (Less than 2)
[2022-04-09 10:36] LABS: Bacteria/HPF 1+ HPF (None Seen); Pregnancy Test - Urine (BHCG) Negative (Negative); Pregu Control Background? CLEAR/WHITE (CLR/WHITE); Pregu Control Bar Appear? YES (CONTROL BAR); Specific Gravity 1.021 (1.002-1.036)
[2022-04-09 12:10] LABS: #Basophils 0.1 thou/uL (0.0-0.2); #Eosinphils 0.2 thou/uL (0.0-0.7); #Lymphocytes 1.7 thou/uL (1.20-3.40); #Monocytes 0.7 thou/uL (0.11-0.59); #Neutrophils 11.7 thou/uL (1.40-6.50); %Basophils 0.4 % (0.0-1.0); %Eosinophils 1.2 % (0.0-10.0); %Lymphocytes 11.8 % (21.0-51.0); %Monocytes 5.1 % (0.0-10.0); %Neutrophils 81.5 % (42.0-75.0); Hemoglobin 11.4 g/dL (12.0-16.0); Mean Corpuscular HGB CONC 33.6 g/dL (32.0-36.0); Mean Corpuscular Hemoglobin 28.7 pg (27.0-31.0); Mean Corpuscular Volume 85.5 fL (78.0-98.0); Mean Platelet Volume 8.8 fL (7.4-10.4); Platelet Count 322 thou/uL (130-400); RBC Distribution Width 14.1 % (11.5-14.5); Red Blood Cell (RBC) Count 3.96 mill/uL (4.20-5.40); White Blood Cell (WBC) Count 14.4 thou/uL (4.8-10.8)
[2022-04-09 12:28] LABS: ALT (SGPT) 13 U/L (8-55); AST (SGOT) 11 U/L (5-34); Albumin 4.8 g/dL (3.5-5.0); Alkaline Phosphatase 53 U/L (40-110); Anion Gap 17 mmol/L (10-20); BUN (Urea Nitrogen) 39 mg/dL (7.0-18.7); Bilirubin, Total 0.4 mg/dL (0.2-1.2); Calc. Creatinine Clearance 0 mL/min (70-130); Calcium 10.1 mg/dL (7.8-10.44); Carbon Dioxide 20 mmol/L (22-29); Chloride 105 mmol/L (98-107); Estimated GFR 53; Globulin 3.5 g/dL (2.4-3.5); Glucose 138 mg/dL (70-105); Lipase 21 U/L (8-78); Potassium 5.1 mmol/L (3.5-5.1); Protein, Total 8.3 g/dL (6.0-8.3); Sodium 137 mmol/L (136-145)
== END 2022-04-09 13:50 | disposition home or self-care (01) ==
LOC: ERS 09:30
DX: N20.0 Calculus of kidney (principal); N39.0 Urinary tract infection, site not specified; E11.9 Type 2 diabetes mellitus without complications; I10 Essential (primary) hypertension; E78.5 Hyperlipidemia, unspecified; Z79.84 Long term (current) use of oral hypoglycemic drugs; Z79.01 Long term (current) use of anticoagulants
CPT/HCPCS: 36415; 80053; 81001; 81025; 83690; 85025; 87077; 87086; 99284

== ENCOUNTER 2022-12-30 09:07 | Outpatient (CLI) | payer OTHER | END 2022-12-30 09:08 | disposition home or self-care (01) | LOC: BICULT 09:07 | PROVIDERS: ATTEND Urology | DX: N20.0 Calculus of kidney (principal) | CPT/HCPCS: 76770 ==

== ENCOUNTER 2024-03-23 06:59 | Outpatient (CLI) | payer OTHER | END 2024-03-23 07:00 | disposition home or self-care (01) | LOC: BICULT 06:59 | PROVIDERS: ATTEND Urology | DX: N20.0 Calculus of kidney (principal) | CPT/HCPCS: 76770 ==

== ENCOUNTER 2025-06-20 07:42 | Outpatient (CLI) | payer OTHER | END 2025-06-20 07:43 | disposition home or self-care (01) | LOC: BICCT 07:42 | PROVIDERS: ATTEND Urology | DX: N20.0 Calculus of kidney (principal); E66.9 Obesity, unspecified | CPT/HCPCS: 74176 ==